=== PATIENT | female | born 1970 | race Caucasian/White ===

== ENCOUNTER → 2016-08-21 | Outpatient (CLI) | payer BC ==
--- NOTE | 2016-08-22 08:09 | MM ---
Reason for exam: screening (asymptomatic). Last mammogram was performed 1 year and 1 month ago. History: Family history of breast cancer in paternal aunt at age 52 and breast cancer in paternal grandmother at age 81. Benign excisional biopsy, 2013. Physical Findings: A clinical breast exam by your physician is recommended on an annual basis and results should be correlated with mammographic findings. MG Screening Mammo w CAD Bilateral CC and MLO view(s) were taken. Prior study comparison: August 04, 2015, bilateral MG screening mammo w CAD. September 15, 2013, bilateral digital screening mammo w/CAD. There are scattered fibroglandular densities. Finding: There are typically benign round calcifications in both breasts. Previous mammotome biopsy in the right breast. There is no discrete abnormality. ASSESSMENT: Benign, BI-RAD 2 RECOMMENDATION: Routine screening mammogram of both breasts in 1 year.
== END | disposition home or self-care (01) ==
LOC: RADMAMWWP 07:15
PROVIDERS: ATTEND Family Medicine
DX: Z12.31 Encounter for screening mammogram for malignant neoplasm of breast (principal); Z80.3 Family history of malignant neoplasm of breast

== ENCOUNTER 2017-04-18 08:45 | Day surgery (SDC) | payer BC ==
[2017-04-14 12:47] VITALS: BMI 30.7
[~2017-04-18 08:45] MED LIST: LACTATED RINGERS 1,000 ML IV ONE; LIDOCAINE 1% 20 ML VIAL (10MG/ML) FOR IV START INTRADERMA PRN
[2017-04-18 09:10] VITALS: TEMP 98.7
[2017-04-18] MEDS ORDERED: LIDOCAINE 1% INJ 10MG/ML (20 ML MDV) ONE (10:08)
[2017-04-18] MEDS ORDERED: PROPOFOL 10 MG/ML 20 ML VIAL IV ONE (10:08)
--- NOTE | 2017-04-18 10:15 | P.GSHP ---
History of Present Illness H&P Date: 04/18/17 Chief Complaint: GI bleed This is a 46-year-old female referred from Dr. Jodi Mcmillan. Patient rents today for colonoscopy. She's had issues with rectal bleeding. She states she had a previous colonoscopy 9 years ago. She is found have colon polyps at that time. Past Medical History Past Medical History: Neurologic Disorder Additional Past Medical History / Comment(s): MIGRAINES History of Any Multi-Drug Resistant Organisms: None Reported Past Surgical History: Breast Surgery, Uterine Ablation Additional Past Surgical History / Comment(s): RT BREAST BX. COLONOSCOPY. D & C Past Anesthesia/Blood Transfusion Reactions: No Reported Reaction Smoking Status: Current every day smoker - Past Family History Mother Family Medical History: No Reported History Medications and Allergies Home Medications Medication Instructions Recorded Confirmed Type No Known Home Medications [No 04/14/17 04/14/17 History Known Home Medications] Allergies Allergy/AdvReac Type Severity Reaction Status Date / Time No Known Allergies Allergy Verified 04/14/17 12:42 Surgical - Exam Vital Signs Temp Pulse Resp BP Pulse Ox 98.7 F 70 16 104/67 96 04/18/17 09:06 04/18/17 09:06 04/18/17 09:06 04/18/17 09:06 04/18/17 09:06 - General well developed, no distress - Eyes PERRL - ENT normal pinna - Neck no masses - Respiratory normal expansion - Cardiovascular Rhythm: regular - Abdomen Abdomen: soft, non tender Assessment and Plan Assessment: GI Bleed. We'll perform colonoscopy
--- NOTE | 2017-04-18 10:29 | P.OP ---
Date of Procedure: 04/18/17 Preoperative Diagnosis: GI bleed Postoperative Diagnosis: Internal hemorrhoids Colon polyps Procedure(s) Performed: Colonoscopy Anesthesia: MAC Surgeon: Herrera Hardin Pathology: other (Colon polyp) Condition: stable Description of Procedure: Patient's placed on the endoscopy table in the lateral position. She received IV sedation. Digital rectal exam was performed which revealed internal hemorrhoids. The flexible colonoscope was then placed patient anus passed throughout the entire colon. The ileocecal valve was visualized. The cecum, ascending and transverse colon appeared normal. The scope back in the descending and sigmoid colon and there is no evidence of any diverticulosis. In the distal sigmoid colon there was a small hyperplastic polyp was removed the forcep. Scope summer back the rectum and another small polyp was removed the forcep. Scope was withdrawn for patient.
[2017-04-18 10:51] VITALS: BP 125/78; PULSE 57; RESP 16
== END 2017-04-18 11:44 | disposition home or self-care (01) ==
LOC: ORWHC2ENDO 08:45
PROVIDERS: ATTEND Surgery
DX: K63.5 Polyp of colon (principal); K62.1 Rectal polyp; K64.8 Other hemorrhoids; F17.200 Nicotine dependence, unspecified, uncomplicated; Z86.010 Personal history of colon polyps
CPT/HCPCS: 45380; 81025; J2001; J2704; 88305

== ENCOUNTER 2017-09-21 11:47 | Observation (INO) | payer BC ==
[2017-09-21] MEDS ORDERED: MORPHINE SULFATE 4MG/4ML SYRG IVP STA ×2 (12:47→16:24)
[2017-09-21] MEDS ORDERED: SODIUM CHLORIDE 0.9% 1,000 ML IV STA (12:47)
--- NOTE | 2017-09-21 12:55 | ED ---
General Adult HPI - General Chief complaint: Abdominal Pain Stated complaint: Pelvic pain Time Seen by Provider: 09/21/17 12:40 Source: patient, RN notes reviewed Mode of arrival: ambulatory Limitations: no limitations - History of Present Illness Initial comments: Patient 46-year-old female presented to the emergency room today with a chief complaint of left lower quadrant. Patient states that she has a history of ovarian cyst. States that she's post follow-up for further imaging with a CAT scan later in the week. States that pain has become worse last 2-3 days more constant. Describes as a twisting type pain left lower quadrant. Denies any bleeding or discharge. Patient states it's been using IV Profen Tylenol at home little relief the symptoms. Patient does admit to feeling nauseous. Patient denies any recent fever, chills, shortness of breath, chest pain, back pain, numbness or tingling, dysuria or hematuria, constipation or diarrhea, headaches or visual changes, or any other complaints. - Related Data Home Medications Medication Instructions Recorded Confirmed No Known Home Medications [No 04/14/17 04/14/17 Known Home Medications] Allergies Allergy/AdvReac Type Severity Reaction Status Date / Time No Known Allergies Allergy Verified 09/21/17 12:05 Review of Systems ROS Statement: Those systems with pertinent positive or pertinent negative responses have been documented in the HPI. ROS Other: All systems not noted in ROS Statement are negative. Past Medical History Past Medical History: Neurologic Disorder Additional Past Medical History / Comment(s): MIGRAINES History of Any Multi-Drug Resistant Organisms: None Reported Past Surgical History: Breast Surgery, Uterine Ablation Additional Past Surgical History / Comment(s): RT BREAST BX. COLONOSCOPY. D & C Past Anesthesia/Blood Transfusion Reactions: No Reported Reaction Past Psychological History: Depression Smoking Status: Current every day smoker Past Alcohol Use History: Occasional Past Drug Use History: None Reported - Past Family History Mother Family Medical History: No Reported History General Exam - General Exam Comments Initial Comments: General: The patient is awake and alert, in no distress, and does not appear acutely ill. Eye: Pupils are equal, round and reactive to light, extra-ocular movements are intact. No nystagmus. There is normal conjunctiva bilaterally. No signs of icterus. Ears, nose, mouth and throat: There are moist mucous membranes and no oral lesions. Neck: The neck is supple, there is no tenderness or JVD. Cardiovascular: There is a regular rate and rhythm. No murmur, rub or gallop is appreciated. Respiratory: Lungs are clear to auscultation, respirations are non-labored, breath sounds are equal. No wheezes, stridor, rales, or rhonchi. Gastrointestinal: Patient does have tenderness left lower quadrant. No rebound tenderness. No guarding. No CVA tenderness. Musculoskeletal: Normal ROM, no tenderness. Strength 5/5. Sensation intact. Pulses equal bilaterally 2+. Neurological: A&O x 3. CN II-XII intact, There are no obvious motor or sensory deficits. Coordination appears grossly intact. Speech is normal. Skin: Skin is warm and dry and no rashes or lesions are noted. Psychiatric: Cooperative, appropriate mood & affect, normal judgment. Limitations: no limitations Course Vital Signs 09/21/17 12:01 Temperature 99.4 F Pulse Rate 80 Respiratory 18 Rate Blood Pressure 134/79 O2 Sat by Pulse 100 Oximetry Medical Decision Making - Medical Decision Making Patient lives been reviewed does show 24,000 white count. Patient does admit that she has a history of an elevated white count of the past that she did go to a specialist for. States that they never found a reason. Patient does admit that she's had increased pain left side of the abdomen over the last few days. Does have an ovarian cyst on the left side of torsion. Does show endometrial mass. CT the abdomen and pelvis performed due to elevated white count and abdominal pain and shows endometrial mass and redemonstrates ovarian cyst. Results were discussed with the patient. Patient be admitted with a MEDICAL INSURANCE COLLECTOR consult. States she's seeing Dr. Gonzalez in the past. - Lab Data Result diagrams: 09/21/17 13:10 09/21/17 13:10 Lab Results 09/21/17 09/21/17 09/21/17 Range/Units 13:10 13:10 13:10 WBC 24.3 H (3.8-10.6) k/uL RBC 5.31 (3.80-5.40) m/uL Hgb 15.8 (11.4-16.0) gm/dL Hct 47.7 H (34.0-46.0) % MCV 90.0 (80.0-100.0) fL MCH 29.7 (25.0-35.0) pg MCHC 33.0 (31.0-37.0) g/dL RDW 12.8 (11.5-15.5) % Plt Count 379 (150-450) k/uL Neutrophils % 85 % Lymphocytes % 8 % Monocytes % 5 % Eosinophils % 3 % Basophils % 0 % Neutrophils # 20.6 H (1.3-7.7) k/uL Lymphocytes # 1.8 (1.0-4.8) k/uL Monocytes # 1.1 H (0-1.0) k/uL Eosinophils # 0.6 (0-0.7) k/uL Basophils # 0.1 (0-0.2) k/uL Sodium 140 (137-145) mmol/L Potassium 4.4 (3.5-5.1) mmol/L Chloride 102 (98-107) mmol/L Carbon Dioxide 27 (22-30) mmol/L Anion Gap 11 mmol/L BUN 5 L (7-17) mg/dL Creatinine 0.59 (0.52-1.04) mg/dL Est GFR (CKD-EPI)AfAm >90 (>60 ml/min/1.73 sqM) Est GFR (CKD-EPI)NonAf >90 (>60 ml/min/1.73 sqM) Glucose 103 H (74-99) mg/dL Calcium 9.8 (8.4-10.2) mg/dL Total Bilirubin 0.9 (0.2-1.3) mg/dL AST 16 (14-36) U/L ALT 19 (9-52) U/L Alkaline Phosphatase 101 (38-126) U/L Total Protein 8.0 (6.3-8.2) g/dL Albumin 4.5 (3.5-5.0) g/dL Lipase 48 (23-300) U/L Urine Color Urine Appearance (Clear) Urine pH (5.0-8.0) Ur Specific [place] (1.001-1.035) Urine Protein (Negative) Urine Glucose (UA) (Negative) Urine Ketones (Negative) Urine Blood (Negative) Urine Nitrite (Negative) Urine Bilirubin (Negative) Urine Urobilinogen (<2.0) mg/dL Ur Leukocyte Esterase (Negative) Urine RBC (0-5) /hpf Urine WBC (0-5) /hpf Ur Squamous Epith Cells (0-4) /hpf Urine Bacteria (None) /hpf Urine Mucus (None) /hpf Urine HCG, Qual Not Detected (Not Detectd) 09/21/17 Range/Units 13:10 WBC (3.8-10.6) k/uL RBC (3.80-5.40) m/uL Hgb (11.4-16.0) gm/dL Hct (34.0-46.0) % MCV (80.0-100.0) fL MCH (25.0-35.0) pg MCHC (31.0-37.0) g/dL RDW (11.5-15.5) % Plt Count (150-450) k/uL Neutrophils % % Lymphocytes % % Monocytes % % Eosinophils % % Basophils % % Neutrophils # (1.3-7.7) k/uL Lymphocytes # (1.0-4.8) k/uL Monocytes # (0-1.0) k/uL Eosinophils # (0-0.7) k/uL Basophils # (0-0.2) k/uL Sodium (137-145) mmol/L Potassium (3.5-5.1) mmol/L Chloride (98-107) mmol/L Carbon Dioxide (22-30) mmol/L Anion Gap mmol/L BUN (7-17) mg/dL Creatinine (0.52-1.04) mg/dL Est GFR (CKD-EPI)AfAm (>60 ml/min/1.73 sqM) Est GFR (CKD-EPI)NonAf (>60 ml/min/1.73 sqM) Glucose (74-99) mg/dL Calcium (8.4-10.2) mg/dL Total Bilirubin (0.2-1.3) mg/dL AST (14-36) U/L ALT (9-52) U/L Alkaline Phosphatase (38-126) U/L Total Protein (6.3-8.2) g/dL Albumin (3.5-5.0) g/dL Lipase (23-300) U/L Urine Color Light Yellow Urine Appearance Clear (Clear) Urine pH 7.0 (5.0-8.0) Ur Specific [place] 1.007 (1.001-1.035) Urine Protein Negative (Negative) Urine Glucose (UA) Negative (Negative) Urine Ketones Negative (Negative) Urine Blood Negative (Negative) Urine Nitrite Negative (Negative) Urine Bilirubin Negative (Negative) Urine Urobilinogen <2.0 (<2.0) mg/dL Ur Leukocyte Esterase Trace H (Negative) Urine RBC 2 (0-5) /hpf Urine WBC 1 (0-5) /hpf Ur Squamous Epith Cells 3 (0-4) /hpf Urine Bacteria Rare H (None) /hpf Urine Mucus Rare H (None) /hpf Urine HCG, Qual (Not Detectd) Disposition Clinical Impression: Ovarian cyst, Endometrial mass Disposition: ADMITTED IP TO THIS [facility] Condition: Good Is patient prescribed a controlled substance at d/c from ED?: No Referrals: None,Stated [REFERRING] - 1-2 days Time of Disposition: 15:38
[2017-09-21] MEDS: ONDANSETRON 4 MG/2 ML VIAL IVP STA (13:15)
[2017-09-21 13:22] LABS: Appearance,Urine Clear (Clear); Bacteria,Urine Rare /hpf; Basophils # (A) 0.1 k/uL (0-0.2); Basophils % (A) 0 %; Bilirubin,Urine Negative (Negative); Blood,Urine Negative (Negative); Color,Urine Light Yellow; Eosinophils # (A) 0.6 k/uL (0-0.7); Eosinophils % (A) 3 %; Glucose,Urine (UA) Negative (Negative); HCT 47.7 % (34.0-46.0); HGB 15.8 gm/dL (11.4-16.0); Ketones,Urine Negative (Negative); Leukocyte Esterase,Urine Trace (Negative); Lymphocytes # (A) 1.8 k/uL (1.0-4.8); Lymphocytes % (A) 8 %; MCH 29.7 pg (25.0-35.0); Mean Platelet Volume 7.4; Monocytes # (A) 1.1 k/uL (0-1.0); Monocytes % (A) 5 %; Mucus,Urine Rare /hpf; Neutrophils # (A) 20.6 k/uL (1.3-7.7); Neutrophils % (A) 85 %; Nitrite,Urine Negative (Negative); Platelet Count 379 k/uL (150-450); Protein,Urine Negative (Negative); RBC 5.31 m/uL (3.80-5.40); RBC,Urine 2 /hpf (0-5); RDW 12.8 % (11.5-15.5); Specific Gravity,Urine 1.007 (1.001-1.035); Squamous Epithelial Cell,Urine 3 /hpf (0-4); Urobilinogen,Urine <2.0 mg/dL (<2.0); WBC 24.3 k/uL (3.8-10.6); WBC,Urine 1 /hpf (0-5)
[2017-09-21 13:33] LABS: ALT 19 U/L (9-52); AST 16 U/L (14-36); Albumin 4.5 g/dL (3.5-5.0); Alkaline Phosphatase 101 U/L (38-126); Anion Gap 11 mmol/L; Blood Urea Nitrogen 5 mg/dL (7-17); Calcium 9.8 mg/dL (8.4-10.2); Carbon Dioxide 27 mmol/L (22-30); Chloride 102 mmol/L (98-107); Glucose 103 mg/dL (74-99); Lipase 48 U/L (23-300); Potassium 4.4 mmol/L (3.5-5.1); Sodium 140 mmol/L (137-145); Total Bilirubin 0.9 mg/dL (0.2-1.3)
--- NOTE | 2017-09-21 13:57 | US ---
EXAMINATION TYPE: US transvaginal DATE OF EXAM: 09/21/2017 COMPARISON: NONE CLINICAL HISTORY: pain. Pt states pelvic pain, recent diagnosis of left ovarian cyst at outside facil ity TECHNIQUE: Transvaginal (TV) and Transabdominal (TA) . Ovaries only visualized transabdominally due to large uterine mass Date of LMP: Pt had ablation 4 years ago, recent vaginal bleeding. However pt states it is very irre gular EXAM MEASUREMENTS: Uterus: 11.4 x 7.0 x 9.7 cm Right Ovary: 2.5 x 1.6 x 1.8 cm Left Ovary: 3.3 x 1.8 x 2.5 cm 1. Uterus: Anteverted Heterogeneous with large, solid mass filling entire uterine cavity= 8.6 x 6. 9 x 8.5 cm, peripheral vascularity 2. Endometrium: Unable to visualize due to large mass 3. Right Ovary: wnl 4. Left Ovary: Cyst= 1.9 x 1.4 x 1.7 cm Spectral, color and waveform doppler imaging shows good arterial and venous flow within the ovaries ; there is no evidence for ovarian torsion. 5. Bilateral Adnexa: wnl 6. Posterior cul-de-sac: small amount of free fluid IMPRESSION: 1. 8.6 CM ENDOMETRIAL MASS. ENDOMETRIAL CARCINOMA WOULD NEED TO BE EXCLUDED. 2. 1.9 CM, LEFT OVARIAN CYST, LIKELY PHYSIOLOGIC.
[2017-09-21] MEDS ORDERED: RX INFO: IV CONTRAST WAS GIVEN 1 EACH MISC MISCELLANE PRN (14:23)
--- NOTE | 2017-09-21 15:18 | CT ---
EXAMINATION TYPE: CT abdomen pelvis w con DATE OF EXAM: 09/21/2017 COMPARISON: NONE HISTORY: LLQ pain. History of uterine ablation. CT DLP: 1358 mGycm CONTRAST: CT scan of the abdomen and pelvis is performed without Oral Contrast and with IV Contrast, patient in jected with 100 mL of Isovue 300. FINDINGS: LUNG BASES-: No visible nodule. No infiltrate. LIVER/GB: No calcified gallstones. No space occupying hepatic lesion. Biliary tree is of normal ca liber. Subcentimeter hepatic cyst right hepatic lobe. PANCREAS: No inflammation. No distinct mass. SPLEEN: No splenic enlargement. No lesion seen. ADRENALS: No nodule. No thickening. KIDNEYS/BLADDER: No hydronephrosis. No nephrolithiasis. No distinct renal mass. Urinary bladder g rossly unremarkable. BOWEL: Normal appendix. Normal bowel caliber. No inflammation. GENITAL ORGANS: 8.4 x 7.6 cm endometrial mass fills the endometrium. Endometrial carcinoma is not ex cluded. Left ovarian cystic lesion measuring 1.6 cm. LYMPH NODES: No greater than 1cm abdominal or pelvic lymph nodes are appreciated. AORTA: No significant abnormality. OSSEOUS STRUCTURES: No significant abnormality is seen. OTHER: No significant additional abnormality is seen. IMPRESSION: 1. Endometrial mass. Correlate for endometrial carcinoma. 2. Small left ovarian cyst.
[2017-09-21] MEDS ORDERED: SODIUM CHLORIDE 0.9% 1,000 ML IV ONE (15:41)
[2017-09-21] MEDS ORDERED: ONDANSETRON 4 MG/2 ML VIAL IVP PRN (15:41)
[2017-09-21] MEDS ORDERED: ACETAMINOPHEN TAB 325 MG TAB PO PRN (15:41)
[2017-09-21] MEDS ORDERED: MORPHINE ORAL SOLN 10 MG/5 ML CUP PO PRN (15:41)
[2017-09-21] MEDS ORDERED: NALOXONE 0.4 MG/ML 1 ML VIAL IV PRN (15:41)
[2017-09-21 17:27] VITALS: BMI 30.4
[2017-09-21] MEDS: HYDROcodone/APAP 5-325MG 1 EACH TAB PO PRN (19:24)
--- NOTE | 2017-09-21 20:46 | P.OBCN ---
History of Present Illness Consult date: 09/21/17 Reason for consult: pelvic pain Chief complaint: Pelvic pain History of present illness: 46-year-old female presents to the hospital complaining of pelvic pain increasing over the month. It really increased over the last 2 days since she presented to the hospital and was admitted. She is a history of NovaSure ablation about [address] Gonzalez and had no periods until the fall. In the fall she started having some spotty irregular periods there were very light. Her last period was in July. She says on September 06 she had an ultrasound admission medical and results just showed an ovarian cyst. Ultrasound here shows a small ovarian cyst but also an 8.6 cm endometrial mass. I suspect that this is likely hematometria from blood stuck inside of the endometrium as the endometrium is bleeding and the cervix is likely scarred from the novasure. It is very unlikely to be endometrial carcinoma especially since this mass was not there on September 06 at her previous ultrasound. Review of Systems All systems: negative Constitutional: Denies chills, Denies fever Eyes: denies blurred vision, denies pain Ears, nose, mouth and throat: Denies headache, Denies sore throat Cardiovascular: Denies chest pain, Denies shortness of breath Respiratory: Denies cough Gastrointestinal: Denies abdominal pain, Denies diarrhea, Denies nausea, Denies vomiting Genitourinary: Denies dysuria, Denies hematuria Musculoskeletal: Denies myalgias Integumentary: Denies pruritus, Denies rash Neurological: Denies numbness, Denies weakness Psychiatric: Denies anxiety, Denies depression Endocrine: Denies fatigue, Denies weight change Past Medical History Past Medical History: Neurologic Disorder Additional Past Medical History / Comment(s): MIGRAINES History of Any Multi-Drug Resistant Organisms: None Reported Past Surgical History: Breast Surgery, Uterine Ablation Additional Past Surgical History / Comment(s): RT BREAST BX. COLONOSCOPY. D & C Past Anesthesia/Blood Transfusion Reactions: No Reported Reaction Past Psychological History: Depression Smoking Status: Current every day smoker Past Alcohol Use History: Occasional Additional Past Alcohol Use History / Comment(s): SMOKING 3/4 PPD SINCE AGE 25 Past Drug Use History: None Reported - Past Family History Mother Family Medical History: No Reported History Medications and Allergies Home Medications Medication Instructions Recorded Confirmed Type Acetaminophen Tab [Tylenol Tab] 650 mg PO Q6H PRN 09/21/17 09/21/17 History Cefdinir [Omnicef] 300 mg PO BID 09/21/17 09/21/17 History Ibuprofen [Motrin] 800 mg PO TID PRN 09/21/17 09/21/17 History Allergies Allergy/AdvReac Type Severity Reaction Status Date / Time varenicline [From Chantix] AdvReac Hallucinati Verified 09/21/17 16:25 ons Exam Osteopathic Statement: *. No significant issues noted on an osteopathic structural exam other than those noted in the History and Physical/Consult. - Vital Signs Vital signs: Vital Signs Temp Pulse Pulse Resp BP BP Pulse Ox 09/21/17 20:10 99.3 F 71 20 117/71 95 09/21/17 16:56 98.3 F 78 20 137/85 96 09/21/17 16:20 99.2 F 80 18 150/72 98 09/21/17 12:01 99.4 F 80 18 134/79 100 Intake and Output 09/21/17 09/21/17 09/21/17 06:59 14:59 22:59 Intake Total 240 Balance 240 Intake: Oral 240 Other: Weight 71.214 kg 70.7 kg Heart: Regular rate and rhythm Lungs: Clear to auscultation bilaterally Abdomen: Soft, nontender Extremities: Negative Homans sign Results Result Diagrams: 09/21/17 13:10 09/21/17 13:10 Abnormal Lab Results - Last 24 Hours (Table) 09/21/17 09/21/17 09/21/17 Range/Units 13:10 13:10 13:10 WBC 24.3 H (3.8-10.6) k/uL Hct 47.7 H (34.0-46.0) % Neutrophils # 20.6 H (1.3-7.7) k/uL Monocytes # 1.1 H (0-1.0) k/uL BUN 5 L (7-17) mg/dL Glucose 103 H (74-99) mg/dL Ur Leukocyte Esterase Trace H (Negative) Urine Bacteria Rare H (None) /hpf Urine Mucus Rare H (None) /hpf Microbiology - Last 24 Hours (Table) 09/21/17 13:10 Urine Culture - Preliminary Urine,Clean Catch Assessment and Plan (1) Pelvic pain Current Visit: Yes Status: Acute Code(s): R10.2 - PELVIC AND PERINEAL PAIN SNOMED Code(s): 35182130 (2) Endometrial mass Narrative/Plan: Suspect hematometria Current Visit: Yes Status: Acute Code(s): N94.89 - OTH COND ASSOC W FEMALE GENITAL ORGANS AND MENSTRUAL CYCLE SNOMED Code(s): 832664682 Plan: 1. Nothing by mouth after midnight 2. I would like to take this patient for a D&C tomorrow as I believe this is the only thing that is going to relieve her pain and will also get a sample of the inner lining of the uterus to ensure this is not endometrial carcinoma. 3. All risks, benefits, alternatives of a dilation and curettage were discussed with the patient and her significant other then expressed complete understanding.
[2017-09-22] MEDS: HYDROcodone/APAP 5-325MG 1 EACH TAB PO PRN (07:00)
[2017-09-22 07:10] LABS: Basophils # (A) 0.1 k/uL (0-0.2); Basophils % (A) 0 %; Eosinophils # (A) 0.4 k/uL (0-0.7); Eosinophils % (A) 2 %; HCT 41.2 % (34.0-46.0); HGB 13.7 gm/dL (11.4-16.0); Lymphocytes % (A) 9 %; MCH 30.3 pg (25.0-35.0); MCHC 33.2 g/dL (31.0-37.0); MCV 91.4 fL (80.0-100.0); Mean Platelet Volume 7.1; Monocytes # (A) 1.1 k/uL (0-1.0); Monocytes % (A) 5 %; Neutrophils # (A) 16.9 k/uL (1.3-7.7); Neutrophils % (A) 81 %; Platelet Count 355 k/uL (150-450); RBC 4.51 m/uL (3.80-5.40); RDW 12.7 % (11.5-15.5); WBC 20.7 k/uL (3.8-10.6)
[2017-09-22 07:24] LABS: ALT 15 U/L (9-52); AST 12 U/L (14-36); Albumin 3.3 g/dL (3.5-5.0); Alkaline Phosphatase 79 U/L (38-126); Anion Gap 11 mmol/L; Blood Urea Nitrogen 4 mg/dL (7-17); Calcium 8.8 mg/dL (8.4-10.2); Carbon Dioxide 23 mmol/L (22-30); Chloride 107 mmol/L (98-107); Glucose 97 mg/dL (74-99); Potassium 4.3 mmol/L (3.5-5.1); Sodium 141 mmol/L (137-145); Total Bilirubin 0.7 mg/dL (0.2-1.3)
[2017-09-22] MEDS ORDERED: IV FLUID CONTINUATION 500 ML IV ONE (08:07)
[2017-09-22] MEDS ORDERED: DEXAMETHASONE SOD PHOS (MDV) 100 MG/10 ML VIAL IV ONE (08:13)
[2017-09-22] MEDS: ONDANSETRON 4 MG/2 ML VIAL IVP STA (08:13)
[2017-09-22] MEDS ORDERED: LIDOCAINE 1% INJ 10MG/ML (20 ML MDV) ONE (09:10)
[2017-09-22] MEDS ORDERED: KETOROLAC 30 MG/ML 1 ML VIAL ONE (09:10)
[2017-09-22] MEDS ORDERED: MIDAZOLAM 2 MG/2 ML VIAL ONE (09:10)
[2017-09-22] MEDS ORDERED: SUCCINYLCHOLINE CHLORIDE 100 MG/5 ML SYR IV ONE (09:10)
[2017-09-22] MEDS ORDERED: PROPOFOL 10 MG/ML 20 ML VIAL IV ONE (09:10)
[2017-09-22] MEDS ORDERED: LACTATED RINGERS 1,000 ML IV ONE (09:45)
--- NOTE | 2017-09-22 09:49 | P.OP ---
Date of Procedure: 09/22/17 Preoperative Diagnosis: 1. Endometrial mass, suspected menometrorrhagia Postoperative Diagnosis: 1. Same Procedure(s) Performed: D&C Anesthesia: CHELLYA Surgeon: Elizabeth Johnson Estimated Blood Loss (ml): 50 IV fluids (ml): 400 Urine output (ml): 40 Pathology: other (Endometrial curettings, blood clot) Condition: stable Disposition: PACU Operative Findings: Stenotic cervix, red blood came out of uterus after cervix was dilated, minimal endometrial curettings Description of Procedure: Patient is taken the operating room where general anesthesia was obtained without difficulty. She is prepped and draped in a sterile fashion dorsal lithotomy position, legs placed in the candycane stirrups. Bladder was drained of all urine. Weighted speculum place in vagina and the anterior lip the cervix was grasped with single-tooth tenaculum. The cervix was dilated with Hegar dilators to the #6. This and as the cervix sounded to be dilated red blood started to come out of the uterus. Sharp curet was then gently used to obtain endometrial curettings. A red blood started to come out of the uterus with this curetting, minimal endometrial curetting was noted. There was felt to be some firmness and possibly solid area within the endometrial cavity. Ultrasound was also attempted to be performed by good visualization was not achieved. Patient was no longer bleeding and all instruments were removed from the vagina. Patient tolerated procedure well, sponge and instrument counts correct 2. She was taken to recovery room in stable condition.
[2017-09-22 11:19] VITALS: TEMP 97.9
[2017-09-22 12:38] VITALS: RESP 18
--- NOTE | 2017-09-22 12:44 | P.HPIM ---
History of Present Illness H&P Date: 09/22/17 This is a 46-year-old female with no significant past medical history who presented to the emergency room with abdominal pain. Patient said that her symptoms started originally a month ago is being getting progressively worse. Over the last couple of days she noted that her pain was intolerable. She was evaluated in the emergency room and underwent a computed tomography scan of the abdomen showing large endometrial mass. A previous ultrasound showed left ovarian cyst. Patient denies any bleeding or spotting. She was having difficulty with her menstrual period and had a prior ablation approximately 4 years ago. She was seen and evaluated by gynecology and underwent a D&C this morning. Patient said that her pain is a lot better right now. No reported bleeding. Estimated blood loss estimated. Hemoglobin is stable. Review of Systems Review of system: 14 points review of systems were obtained and were negative except to what were mentioned in the HPI. Past Medical History Past Medical History: Neurologic Disorder Additional Past Medical History / Comment(s): MIGRAINES History of Any Multi-Drug Resistant Organisms: None Reported Past Surgical History: Breast Surgery, Uterine Ablation Additional Past Surgical History / Comment(s): RT BREAST BX. COLONOSCOPY. D & C Past Anesthesia/Blood Transfusion Reactions: No Reported Reaction Past Psychological History: Depression Smoking Status: Current every day smoker Past Alcohol Use History: Occasional Additional Past Alcohol Use History / Comment(s): SMOKING 3/4 PPD SINCE AGE 25 Past Drug Use History: None Reported - Past Family History Mother Family Medical History: No Reported History Medications and Allergies Home Medications Medication Instructions Recorded Confirmed Type Acetaminophen Tab [Tylenol Tab] 650 mg PO Q6H PRN 09/21/17 09/21/17 History Cefdinir [Omnicef] 300 mg PO BID 09/21/17 09/21/17 History Ibuprofen [Motrin] 800 mg PO TID PRN 09/21/17 09/21/17 History Allergies Allergy/AdvReac Type Severity Reaction Status Date / Time varenicline [From Chantix] AdvReac Hallucinati Verified 09/22/17 08:15 ons Physical Exam Vitals: Vital Signs Temp Pulse Pulse Pulse Pulse Resp BP 09/22/17 11:40 66 18 09/22/17 11:25 75 17 09/22/17 11:10 97.9 F 76 17 09/22/17 10:50 64 16 09/22/17 10:34 61 16 09/22/17 10:19 60 16 09/22/17 10:04 97.4 F L 65 22 09/22/17 08:08 97.6 F 65 16 09/22/17 07:44 98.1 F 72 16 09/21/17 23:45 97.3 F L 67 16 09/21/17 20:10 99.3 F 71 20 09/21/17 16:56 98.3 F 78 20 09/21/17 16:20 99.2 F 80 18 150/72 BP BP Pulse Ox 09/22/17 11:40 144/83 95 09/22/17 11:25 152/89 95 09/22/17 11:10 142/95 98 09/22/17 10:50 142/82 95 09/22/17 10:34 153/83 95 09/22/17 10:19 145/81 100 09/22/17 10:04 149/81 100 09/22/17 08:08 123/71 95 09/22/17 07:44 120/78 95 09/21/17 23:45 139/86 98 09/21/17 20:10 117/71 95 09/21/17 16:56 137/85 96 09/21/17 16:20 98 Intake and Output 09/21/17 09/22/17 09/22/17 22:59 06:59 14:59 Intake Total 240 420 Output Total 90 Balance 240 330 Intake: IV 420 Oral 240 Output: Urine 40 Estimated Blood Loss 50 Other: # Voids 1 1 Weight 70.7 kg General: The patient is awake and alert, in no distress Eye: there is normal conjunctiva bilaterally. Neck: The neck is supple, there is no JVD. Cardiovascular: Normal S1-S2, no S3-S4, no murmurs. Respiratory: Lungs clear to auscultation bilaterally Gastrointestinal: Abdomen is soft, nontender Musculoskeletal: There is no pedal edema. Neurological:. Speech is normal. Skin: Skin is warm and dry Results CBC & Chem 7: 09/22/17 06:31 09/22/17 06:31 Labs: Abnormal Lab Results - Last 24 Hours (Table) 09/21/17 09/21/17 09/21/17 Range/Units 13:10 13:10 13:10 WBC 24.3 H (3.8-10.6) k/uL Hct 47.7 H (34.0-46.0) % Neutrophils # 20.6 H (1.3-7.7) k/uL Monocytes # 1.1 H (0-1.0) k/uL BUN 5 L (7-17) mg/dL Glucose 103 H (74-99) mg/dL AST (14-36) U/L Total Protein (6.3-8.2) g/dL Albumin (3.5-5.0) g/dL Ur Leukocyte Esterase Trace H (Negative) Urine Bacteria Rare H (None) /hpf Urine Mucus Rare H (None) /hpf 09/22/17 09/22/17 Range/Units 06:31 06:31 WBC 20.7 H (3.8-10.6) k/uL Hct (34.0-46.0) % Neutrophils # 16.9 H (1.3-7.7) k/uL Monocytes # 1.1 H (0-1.0) k/uL BUN 4 L (7-17) mg/dL Glucose (74-99) mg/dL AST 12 L (14-36) U/L Total Protein 6.0 L (6.3-8.2) g/dL Albumin 3.3 L (3.5-5.0) g/dL Ur Leukocyte Esterase (Negative) Urine Bacteria (None) /hpf Urine Mucus (None) /hpf Microbiology - Last 24 Hours (Table) 09/21/17 13:10 Urine Culture - Final Urine,Clean Catch Thrombosis Risk Factor Assmnt - Choose All That Apply Each Factor Represents 1 point: Age 41-60 years, Obesity (BMI >25) Other Risk Factors: Yes Other congenital or acquired thrombophilia - If yes, enter type in comment: Yes Thrombosis Risk Factor Assessment Total Risk Factor Score: 2 Thrombosis Risk Factor Assessment Level: Low Risk Assessment and Plan Assessment: 1. Severe abdominal pain with large endometrial mass status post D&C. Highly suspected for menometrorrhagia. Awaiting pathology report. 2. Leukocytosis: Most likely reactive. No obvious source of infection. Urine I'll assist and urine culture negative. No documented fever. We will repeat CBC in the morning. Today, I reviewed her medication list and lab work results. Encouraged ambulation. Repeat CBC in the morning. It's be discharged home tomorrow
[2017-09-22 14:06] VITALS: BP 122/84; PULSE 69
== END 2017-09-22 17:04 | disposition home or self-care (01) ==
LOC: EC 11:47 → 6PED 15:41
PROVIDERS: ADMIT Internal Medicine; ATTEND Internal Medicine
DX: N85.8 Other specified noninflammatory disorders of uterus (principal); N83.202 Unspecified ovarian cyst, left side; D72.829 Elevated white blood cell count, unspecified; F32.9 Major depressive disorder, single episode, unspecified; F17.210 Nicotine dependence, cigarettes, uncomplicated; Z88.8 Allergy status to other drugs, medicaments and biological substances; E66.9 Obesity, unspecified; Z68.30 Body mass index [BMI] 30.0-30.9, adult; R11.0 Nausea; Z79.2 Long term (current) use of antibiotics
CPT/HCPCS: 58120; 99285; 96361 ×4; 96374; 96375 ×2; 96376; 36415; 81025 ×2; 88305; 80053 ×2; 83690; 85025 ×2; 81001; 87086; 93975; 76856; 76830; 74177; G0378 ×2; J2250; J2405 ×2; J2001; J1885; J1100; J0330; J2704; Q9967; J2270

== ENCOUNTER → 2017-10-02 | Outpatient (CLI) | payer BC ==
--- NOTE | 2017-10-02 14:56 | US ---
EXAMINATION TYPE: US pelvic complete DATE OF EXAM: 10/02/2017 COMPARISON: 08/2017 CLINICAL HISTORY: R10.2 pelvic pain, N94.89Other specified condition. TECHNIQUE: Transabdominal (TA). Transabdominal sonographic images of the pelvis were acquired. Date of LMP: 4 years ago , ablation, bleeding 08/17 EXAM MEASUREMENTS: Uterus: 11.4 x 8.0 x 7.7 cm Endometrial Stripe: 6.3 cm Right Ovary: 2.1 x 1.7 x 1.6 cm Left Ovary: 2.1 x 2.5 x 1.4 cm 1. Uterus: Anteverted large heterogenous mass mid uterus 6.3 x 5.9 x 7.8 2. Endometrium: large heterogenous mass mid uterus 6.3 x 5.9 x 7.8 3. Right Ovary: 0.9 x 0.9 x 0.6 cm follicle 4. Left Ovary: 1.1 x 1.0 x 1.3 cm follicle. 5. Bilateral Adnexa: wnl 6. Posterior cul-de-sac: wnl IMPRESSION: Centrally within the uterus there is a large heterogenous mass as seen on the recent exam ination of 09/21/2017. Direct visualization and tissue sampling are recommended as this could represen t endometrial carcinoma, submucosal leiomyoma or leiomyosarcoma.
== END | disposition home or self-care (01) ==
LOC: RADUSWWP 14:11
PROVIDERS: ATTEND Obstetrics & Gynecology
DX: N94.89 Other specified conditions associated with female genital organs and menstrual cycle (principal); R10.2 Pelvic and perineal pain
CPT/HCPCS: 76856

== ENCOUNTER 2017-10-06 07:35 | Emergency (ER) | payer BC ==
[2017-10-06 07:48] VITALS: RESP 18
[2017-10-06] MEDS ORDERED: HYDROcodone/APAP 7.5-325MG 1 EACH TAB PO ONE (08:18)
[2017-10-06 08:31] LABS: Appearance,Urine Cloudy (Clear); Bacteria,Urine Few /hpf; Bilirubin,Urine Negative (Negative); Blood,Urine Large (Negative); Color,Urine Yellow; Glucose,Urine (UA) Negative (Negative); Ketones,Urine Negative (Negative); Leukocyte Esterase,Urine Large (Negative); Mucus,Urine Occasional /hpf; Nitrite,Urine Negative (Negative); PH, Urine 6.5 (5.0-8.0); Protein,Urine 2+ (Negative); RBC,Urine 21 /hpf (0-5); Squamous Epithelial Cell,Urine 18 /hpf (0-4); Urobilinogen,Urine <2.0 mg/dL (<2.0); WBC,Urine >182 /hpf (0-5)
--- NOTE | 2017-10-06 08:42 | ED ---
Abdominal Pain HPI - General Chief Complaint: Abdominal Pain Stated Complaint: Pelvic pain Time Seen by Provider: 10/06/17 08:04 Source: patient, RN notes reviewed Mode of arrival: ambulatory Limitations: no limitations - History of Present Illness Initial Comments: 46-year-old female presents emergency Department with chief complaint of pelvic pain. Patient's been having ongoing pelvic pain was since July. She was admitted a few weeks ago for a hematometra and had a D&C. Patient's was discharged with anti-inflammatories. Patient states that they are not helping she's been alternate Tylenol Motrin. She did follow-up in office twice this week at repeat ultrasound which continues to show endometrial mass or blood collection. Patient states that she also had a urine culture does week was negative on Friday but feels that she may have UTI. Patient states that they contacted the office this weekend who advised him to emergency department today. - Related Data Home Medications Medication Instructions Recorded Confirmed Acetaminophen Tab [Tylenol Tab] 650 mg PO Q6H PRN 09/21/17 09/21/17 Cefdinir [Omnicef] 300 mg PO BID 09/21/17 09/21/17 Ibuprofen [Motrin] 800 mg PO TID PRN 09/21/17 09/21/17 Previous Rx's Medication Instructions Recorded Ciprofloxacin HCl [Cipro] 500 mg PO Q12HR #14 tablet 10/06/17 Hydrocodone/Acetaminophen [Novi 1 tab PO Q4-6H PRN #15 tab 10/06/17 5-325] Allergies Allergy/AdvReac Type Severity Reaction Status Date / Time varenicline [From Chantix] AdvReac Hallucinati Verified 10/06/17 07:48 ons Review of Systems ROS Statement: Those systems with pertinent positive or pertinent negative responses have been documented in the HPI. ROS Other: All systems not noted in ROS Statement are negative. Past Medical History Past Medical History: Neurologic Disorder Additional Past Medical History / Comment(s): MIGRAINES History of Any Multi-Drug Resistant Organisms: None Reported Past Surgical History: Breast Surgery, Uterine Ablation Additional Past Surgical History / Comment(s): RT BREAST BX. COLONOSCOPY. D & C Past Anesthesia/Blood Transfusion Reactions: No Reported Reaction Past Psychological History: Depression Smoking Status: Current every day smoker Past Alcohol Use History: Occasional Past Drug Use History: None Reported - Past Family History Mother Family Medical History: No Reported History General Exam Limitations: no limitations General appearance: alert, in no apparent distress Head exam: Present: atraumatic, normocephalic, normal inspection Respiratory exam: Present: normal lung sounds bilaterally. Absent: respiratory distress, wheezes, rales, rhonchi, stridor Cardiovascular Exam: Present: regular rate, normal rhythm, normal heart sounds. Absent: systolic murmur, diastolic murmur, rubs, gallop, clicks GI/Abdominal exam: Present: soft, tenderness (Moderate lower abdominal, suprapubic tenderness), normal bowel sounds. Absent: distended, guarding, rebound, rigid Back exam: Absent: CVA tenderness (R), CVA tenderness (L) Skin exam: Present: warm, dry, intact, normal color. Absent: rash Course Vital Signs 10/06/17 07:46 Temperature 98.5 F Pulse Rate 104 H Respiratory 18 Rate Blood Pressure 112/81 O2 Sat by Pulse 97 Oximetry Medical Decision Making - Medical Decision Making 46-year-old female presented for pelvic pain. Patient has known hematometra and is scheduled for hysterectomy on 11/13/2017. Patient states that the office advised to come to the emergency department because of the pain. Patient states that she's been taken Tylenol Motrin. Dr. Yi did discuss the case with on-call [facility] for Dr. Johnson recommended pain control for the patient follow-up in office for further treatment. - Lab Data Lab Results 10/06/17 Range/Units 08:15 Urine Color Yellow Urine Appearance Cloudy H (Clear) Urine pH 6.5 (5.0-8.0) Ur Specific Marcus 1.020 (1.001-1.035) Urine Protein 2+ H (Negative) Urine Glucose (UA) Negative (Negative) Urine Ketones Negative (Negative) Urine Blood Large H (Negative) Urine Nitrite Negative (Negative) Urine Bilirubin Negative (Negative) Urine Urobilinogen <2.0 (<2.0) mg/dL Ur Leukocyte Esterase Large H (Negative) Urine RBC 21 H (0-5) /hpf Urine WBC >182 H (0-5) /hpf Urine WBC Clumps Occasional H (None) /hpf Ur Squamous Epith Cells 18 H (0-4) /hpf Urine Bacteria Few H (None) /hpf Urine Mucus Occasional H (None) /hpf Disposition Clinical Impression: Pelvic pain, Hematometra, UTI (urinary tract infection) Disposition: HOME SELF-CARE Condition: Stable Instructions: Pelvic Pain (ED) Additional Instructions: Follow-up in office with [facility].Please return to the Emergency Department if symptoms worsen or any other concerns. Prescriptions: Ciprofloxacin HCl [Cipro] 500 mg PO Q12HR #14 tablet Hydrocodone/Acetaminophen [Novi 5-325] 1 tab PO Q4-6H PRN #15 tab PRN Reason: Pain Is patient prescribed a controlled substance at d/c from ED?: Yes If prescribed controlled substance>3 days was MAPS reviewed?: No When asked, does pt state using other controlled substances?: No Referrals: Jodi Mcmillan DO [Primary Care Provider] - 1-2 days Elizabeth Johnson DO [Doctor of Osteopathic Medicine] - 1-2 days Time of Disposition: 08:41
[2017-10-06 09:00] VITALS: BP 122/78; PULSE 78; TEMP 98
== END 2017-10-06 09:00 | disposition home or self-care (01) ==
LOC: EC 07:35
DX: N85.7 Hematometra (principal); N39.0 Urinary tract infection, site not specified; F17.200 Nicotine dependence, unspecified, uncomplicated; Z88.8 Allergy status to other drugs, medicaments and biological substances
CPT/HCPCS: 81001; 87077; 87086; 87186; 99284

== ENCOUNTER → 2017-11-04 | Outpatient (CLI) | payer BC ==
[2017-11-04 16:50] LABS: Anion Gap 12 mmol/L; Blood Urea Nitrogen 5 mg/dL (7-17); Calcium 9.6 mg/dL (8.4-10.2); Carbon Dioxide 25 mmol/L (22-30); Chloride 103 mmol/L (98-107); Glucose 111 mg/dL (74-99); Potassium 4.4 mmol/L (3.5-5.1); Sodium 140 mmol/L (137-145)
[2017-11-04 18:24] LABS: Basophils # (A) 0.1 k/uL (0-0.2); Basophils % (A) 1 %; Eosinophils # (A) 0.4 k/uL (0-0.7); Eosinophils % (A) 2 %; HCT 43.3 % (34.0-46.0); HGB 13.9 gm/dL (11.4-16.0); Lymphocytes # (A) 2.3 k/uL (1.0-4.8); Lymphocytes % (A) 14 %; MCH 29.4 pg (25.0-35.0); MCV 91.9 fL (80.0-100.0); Mean Platelet Volume 7.8; Monocytes # (A) 0.7 k/uL (0-1.0); Monocytes % (A) 5 %; Neutrophils # (A) 12.7 k/uL (1.3-7.7); Neutrophils % (A) 78 %; Platelet Count 427 k/uL (150-450); RBC 4.71 m/uL (3.80-5.40); RDW 14.6 % (11.5-15.5); WBC 16.3 k/uL (3.8-10.6)
== END | disposition home or self-care (01) ==
LOC: LABPAT 15:54
PROVIDERS: ATTEND Obstetrics & Gynecology
DX: Z01.812 Encounter for preprocedural laboratory examination (principal)
CPT/HCPCS: 36415; 80048; 85025

== ENCOUNTER 2017-11-13 08:01 | Observation (INO) | payer BC ==
[2017-11-05 13:07] VITALS: BMI 29.2
--- NOTE | 2017-11-12 16:51 | P.HPOB ---
History of Present Illness H&P Date: 11/12/17 Chief Complaint: pelvic pain 46-year-old female presents for total laparoscopic hysterectomy, diagnostic cystoscopy, possible total abdominal hysterectomy and bilateral salpingo- oophorectomy. she has had a NovaSure ablation in the past and recently started having cycles again with increased and severe pain. D&C to relieve the hematometra area resolved the pain for a very short period of time. The pain returned and today she presents for removal of the uterus Review of Systems All systems: negative Constitutional: Denies chills, Denies fever Eyes: denies blurred vision, denies pain Ears, nose, mouth and throat: Denies headache, Denies sore throat Cardiovascular: Denies chest pain, Denies shortness of breath Respiratory: Denies cough Gastrointestinal: Denies abdominal pain, Denies diarrhea, Denies nausea, Denies vomiting Genitourinary: Denies dysuria, Denies hematuria Musculoskeletal: Denies myalgias Integumentary: Denies pruritus, Denies rash Neurological: Denies numbness, Denies weakness Psychiatric: Denies anxiety, Denies depression Endocrine: Denies fatigue, Denies weight change Past Medical History Past Medical History: Neurologic Disorder Additional Past Medical History / Comment(s): MIGRAINES History of Any Multi-Drug Resistant Organisms: None Reported Past Surgical History: Breast Surgery, Uterine Ablation Additional Past Surgical History / Comment(s): RT BREAST BX, Novasure ablation. COLONOSCOPY. D & C Past Anesthesia/Blood Transfusion Reactions: No Reported Reaction Smoking Status: Current every day smoker - Past Family History Mother Family Medical History: No Reported History Medications and Allergies Home Medications Medication Instructions Recorded Confirmed Type Acetaminophen Tab [Tylenol Tab] 650 mg PO Q6H PRN 09/21/17 11/05/17 History Hydrocodone/Acetaminophen [[place] 1 tab PO Q4-6H PRN #15 tab 10/06/17 11/05/17 Rx 5-325] traMADol HCL [Ultram] 50 mg PO TID PRN 11/10/17 11/10/17 History Allergies Allergy/AdvReac Type Severity Reaction Status Date / Time varenicline [From Chantix] AdvReac Hallucinati Verified 11/05/17 12:56 ons Exam Osteopathic Statement: *. No significant issues noted on an osteopathic structural exam other than those noted in the History and Physical/Consult. Heart: Regular rate and rhythm Lungs: Clear to auscultation bilaterally Abdomen: Soft, nontender Extremities: Negative Homans sign Assessment and Plan (1) Hematometra Status: Acute Code(s): N85.7 - HEMATOMETRA SNOMED Code(s): 12329704 (2) Pelvic pain Status: Acute Code(s): R10.2 - PELVIC AND PERINEAL PAIN SNOMED Code(s): 61887604 Plan: 1. Total laparoscopic hysterectomy with da Sean and diagnostic cystoscopy, possible total abdominal hysterectomy bilateral salpingo-oophorectomy.
[~2017-11-13 08:01] MED LIST changes: +DEXAMETHASONE SOD PHOSPHATE 10 MG/ML 1 ML VIAL IV ONE; -LACTATED RINGERS 1,000 ML IV ONE; -LIDOCAINE 1% 20 ML VIAL (10MG/ML) FOR IV START INTRADERMA PRN; +MIDAZOLAM 2 MG/2 ML VIAL IV PRN; +ONDANSETRON 4 MG/2 ML VIAL IVP ONE; +ceFAZolin IN SWFI 2 GM/20 ML SYRINGE IVP ONE
[2017-11-13] MEDS: LACTATED RINGERS 1,000 ML IV SCH ×2 (08:41→16:27)
[2017-11-13] MEDS ORDERED: BUPIVACAINE (PF) 0.5% 30 ML VIAL SQ ONE ×3 (09:04→11:00)
[2017-11-13] MEDS ORDERED: LIDOCAINE 1% INJ 10MG/ML (20 ML MDV) ONE (09:10)
[2017-11-13] MEDS ORDERED: GLYCOPYRROLATE 0.2 MG/ML 2 ML VIAL ONE (09:10)
[2017-11-13] MEDS ORDERED: NEOSTIGMINE 1 MG/ML 10 ML VIAL ONE (09:10)
[2017-11-13] MEDS ORDERED: HYDROmorphone (PF) 1 MG/ML ONE (09:10)
[2017-11-13] MEDS ORDERED: cefTRIAXone 250 MG VIAL ONE (09:10)
[2017-11-13] MEDS ORDERED: MIDAZOLAM 2 MG/2 ML VIAL ONE (09:10)
[2017-11-13] MEDS ORDERED: KETOROLAC 30 MG/ML 1 ML VIAL ONE (09:10)
[2017-11-13] MEDS ORDERED: SUCCINYLCHOLINE CHLORIDE 100 MG/5 ML SYR IV ONE (09:10)
[2017-11-13] MEDS ORDERED: fentaNYL (PF) 50 MCG/ML 2 ML AMP ONE (09:10)
[2017-11-13] MEDS ORDERED: ROCURONIUM BROMIDE 10 MG/ML 10 ML VIAL IV ONE (09:10)
[2017-11-13] MEDS ORDERED: PROPOFOL 10 MG/ML 20 ML VIAL IV ONE (09:10)
[2017-11-13] MEDS ORDERED: AZITHROMYCIN 500 MG VIAL IVPB ONE (09:10)
[2017-11-13] MEDS ORDERED: ACETAMINOPHEN IV (For NPO) 1,000 MG/100 ML VIAL ONE (09:10)
[2017-11-13] MEDS ORDERED: cefTRIAXone 250 MG VIAL IM STA (10:13)
[2017-11-13] MEDS ORDERED: LACTATED RINGERS 1,000 ML IV ONE (10:59)
--- NOTE | 2017-11-13 11:15 | P.OP ---
Date of Procedure: 11/13/17 Preoperative Diagnosis: 1. pelvic pain Postoperative Diagnosis: 1. Pelvic pain 2. pyosalpinx 3. enlarged uterus Procedure(s) Performed: Total laparoscopic hysterectomy and bilateral salpingectomy with da Sean, diagnostic cystoscopy Anesthesia: TAMARA Surgeon: Elizabeth Johnson Principal Product Manager #1: Leodan Bagley Estimated Blood Loss (ml): 200 IV fluids (ml): 1,300 Urine output (ml): 50 Pathology: other (Uterus cervix bilateral fallopian tubes) Condition: stable Disposition: PACU Operative Findings: Enlarged uterus, there was purulent drainage from both fallopian tubes, filmy adhesions to the pelvic sidewalls and the anterior and posterior uterus. Description of Procedure: Patient taken the operating room where general anesthesia was obtained without difficulty. She is prepped and draped in normal sterile fashion dorsal lithotomy position, legs placed in the Wicho stirrups. Weighted speculum placed in the vagina and the anterior lip the cervix was grasped with single- tooth tenaculum. The uterus sounded to 10 cm and the cervix diameter was 3 cm. The appropriate manipulator tip and ring were placed on the Rbea manipulator. The Reba manipulator was then placed in the uterus. Sagastume catheter was also placed. Attention was then turned to the abdomen and gloves were changed. A 5 mm supraumbilical incision was made the scalpel and a 5 mm optical trocar was placed under direct visualization. 10 cm to the right of this and 2 cm down a 5 mm incision was made and 8 mm da Sean port was placed under direct visualization. Same measurements on the opposite side of the patient's abdomen , the 5 mm incision was made and 8 mm da Sean port was placed under direct visualization. In the left upper quadrant a 10 mm incision was made and a 10 mm optical trocar was placed under direct visualization. The 5 mm optical trocar was then replaced with the 8 mm da Sean camera port. The robot was docked on patient's right side. The camera was introduced and then the monopolar curved scissor and [place] bipolar placed under direct visualization. I broke scrub and went to the physician console. The left utero -ovarian ligament was cauterized with the [place] bipolar and cut with monopolar curved scissors. The left round ligament was cauterized with the [place] bipolar and cut with monopolar curved scissors. The posterior leaf of the broad ligament was taken down using the monopolar curved scissors. Anterior leaf of the broad ligament was then taken down using the monopolar curved scissors. The uterine artery was cauterized with the [place] bipolar and cut with monopolar curved scissors. The bladder flap was then started using the monopolar curved scissors. Attention was then turned to the right side of the patient's anatomy and the right ovary and fallopian tube were noted to be adhered to the right pelvic sidewall. We were peeled off this using the monopolar without any cautery. At this time some purulent drainage came from the fallopian tube and it was determined that the fallopian tube needed to be removed. The mesosalpinx was dissected, cauterized with the [place] bipolar and then cut with the monopolar curved scissors. The right utero-ovarian ligament was cauterized with the [place] bipolar and cut with monopolar curved scissors. The right round ligament was cauterized with the [place] bipolar and cut with monopolar curved scissors. Posterior leaf of the broad ligament was taken down using the monopolar curved scissors and the anterior leaf was taken down using the monopolar curved scissors. The uterine artery was cauterized the [place] bipolar cut with monopolar curved scissors. The bladder flap was then finished on this side. Anterior colpotomy was made using the monopolar curved scissors. The rest of the uterus was from the vaginal cuff by following the ring around with the monopolar curved scissors through the uterosacral ligaments back to the anterior portion. Once the uterus and cervix were amputated they were pulled through the vaginal cuff. Hemostasis was assured. The instruments were changed for the Cardier forcep and the tristin suture cut. The vaginal cuff was then closed using 2-O stratafix barbed suture in a running fashion. I took over the left fallopian tube again and noted that there was some purulent drainage coming from that side to. The left mesosalpinx was dissected, cauterized with the [place] bipolar and cut with the monopolar curved scissors. This fallopian tube was freed from the underlying ovary and removed through the behavioral assistant port. Hemostasis was again assured and the pelvis was irrigated. All instruments were removed from the abdomen and the robot was undocked. I scrubbed back in to perform a cystoscopy. There were jets from both ureteral orifices. The abdominal incisions were closed with 4-0 Vicryl in a subcuticular fashion. Patient tolerated the procedure well, sponge and instrument counts correct 2 and she was taken to recovery room in stable condition condition
[2017-11-13] MEDS: AZITHROMYCIN 500 MG in SODIUM CHLORIDE 0.9% 250 ML IVPB STA ×2 (11:29→12:33)
[2017-11-13] MEDS: HYDROmorphone 0.5 MG/0.5 ML SYRINGE IVP PRN ×2 (12:14→12:19)
[2017-11-13] MEDS ORDERED: ONDANSETRON 4 MG/2 ML VIAL IVP PRN (13:06)
[2017-11-13] MEDS ORDERED: METOCLOPRAMIDE 5 MG/ML 2 ML VIAL IVP PRN (13:06)
[2017-11-13] MEDS ORDERED: SIMETHICONE 80 MG CHEWABLE PO PRN (13:06)
[2017-11-13] MEDS ORDERED: diphenhydrAMINE 50 MG/ML 1 ML VIAL IVP PRN (13:06)
[2017-11-13] MEDS: KETOROLAC 30 MG/ML 1 ML VIAL IVP PRN ×2 (17:04→23:18)
[2017-11-13] MEDS: HYDROcodone/APAP 7.5-325MG 1 EACH TAB PO PRN (19:00)
[2017-11-13] MEDS: SENNOSIDES-DOCUSATE SODIUM 1 EACH TAB PO SCH (20:53)
[2017-11-14] MEDS: LACTATED RINGERS 1,000 ML IV SCH (01:30)
[2017-11-14] MEDS: HYDROcodone/APAP 7.5-325MG 1 EACH TAB PO PRN (04:40)
[2017-11-14 04:48] VITALS: PULSE 64
[2017-11-14 06:50] LABS: Basophils % (A) 0 %; Eosinophils # (A) 0.2 k/uL (0-0.7); Eosinophils % (A) 1 %; HCT 33.6 % (34.0-46.0); Lymphocytes # (A) 2.5 k/uL (1.0-4.8); Lymphocytes % (A) 11 %; MCH 29.9 pg (25.0-35.0); MCHC 32.8 g/dL (31.0-37.0); MCV 91.2 fL (80.0-100.0); Mean Platelet Volume 6.9; Monocytes # (A) 1.1 k/uL (0-1.0); Monocytes % (A) 5 %; Neutrophils # (A) 18.5 k/uL (1.3-7.7); Neutrophils % (A) 83 %; Platelet Count 353 k/uL (150-450); RBC 3.69 m/uL (3.80-5.40); RDW 15.4 % (11.5-15.5); WBC 22.4 k/uL (3.8-10.6)
--- NOTE | 2017-11-14 08:06 | P.DS ---
Providers Date of admission: 11/14/17 00:59 Expected date of discharge: 11/14/17 Attending physician: Elizabeth Johnson Primary care physician: Jodi Mcmillan - Discharge Diagnosis(es) (1) Hematometra Current Visit: Yes Status: Resolved (2) Pelvic pain Current Visit: Yes Status: Resolved (3) History of robot-assisted laparoscopic hysterectomy Current Visit: Yes Status: Acute Hospital Course: Patient presented for TLH with da roxie. She underwent TLH with BS with da roxie and had no complications. It was found she did have pyosalpinx so did receive extra antibiotics and will go home on zithromax for a week. She remains afebrile though her wbcs increased from 16 to 22. She is ambulating, voiding, passsing flatus and tolerating a reg diet. Incisions are C/D/I. She will be discharged home to follow up with me in 3 weeks. Plan - Discharge Summary Discharge Rx Participant: Yes New Discharge Prescriptions: New HYDROcodone/APAP 7.5-325MG [Erwin 7.5-325] 1 each PO Q6H PRN #14 tab PRN Reason: MODERATE Pain Ibuprofen [Motrin] 600 mg PO Q6HR PRN #30 tab PRN Reason: Mild Pain Or Fever >= 100.5 No Action Acetaminophen Tab [Tylenol Tab] 650 mg PO Q6H PRN PRN Reason: Pain Hydrocodone/Acetaminophen [Erwin 5-325] 1 tab PO Q4-6H PRN #15 tab PRN Reason: Pain traMADol HCL [Ultram] 50 mg PO TID PRN PRN Reason: Pain Discharge Medication List Acetaminophen Tab [Tylenol Tab] 650 mg PO Q6H PRN 09/21/17 [History] Hydrocodone/Acetaminophen [Erwin 5-325] 1 tab PO Q4-6H PRN #15 tab 10/06/17 [Rx] traMADol HCL [Ultram] 50 mg PO TID PRN 11/10/17 [History] HYDROcodone/APAP 7.5-325MG [Erwin 7.5-325] 1 each PO Q6H PRN #14 tab 11/14/17 [ Rx] Ibuprofen [Motrin] 600 mg PO Q6HR PRN #30 tab 11/14/17 [Rx] Follow up Appointment(s)/Referral(s): Elizabeth Johnson DO [Doctor of Osteopathic Medicine] - 3 Weeks Discharge Disposition: HOME SELF-CARE
[2017-11-14] MEDS ORDERED: AZITHROMYCIN 500 MG TAB PO STA (08:09)
[2017-11-14 08:31] VITALS: BP 112/68; RESP 19; TEMP 97.8
[2017-11-14] MEDS: SENNOSIDES-DOCUSATE SODIUM 1 EACH TAB PO SCH (08:49)
[2017-11-14] MEDS: KETOROLAC 30 MG/ML 1 ML VIAL IVP PRN (08:58)
== END 2017-11-14 10:59 | disposition home or self-care (01) ==
LOC: OR 08:01 → 6PED 11:25 → OR 11-14 00:59
PROVIDERS: ADMIT Obstetrics & Gynecology; ATTEND Obstetrics & Gynecology
DX: N85.7 Hematometra (principal); N85.2 Hypertrophy of uterus; N70.91 Salpingitis, unspecified; D25.9 Leiomyoma of uterus, unspecified; G43.909 Migraine, unspecified, not intractable, without status migrainosus; F17.200 Nicotine dependence, unspecified, uncomplicated; Z88.8 Allergy status to other drugs, medicaments and biological substances
CPT/HCPCS: 58554; S2900; 81025; 85025; 86850; 86900; 86901; 88307

== ENCOUNTER → 2018-01-16 | Outpatient (CLI) | payer BC ==
--- NOTE | 2018-01-20 12:17 | MM ---
Reason for exam: screening (asymptomatic). Last mammogram was performed 1 year and 5 months ago. History: Patient is postmenopausal. Family history of breast cancer in paternal aunt at age 52 and breast cancer in paternal grandmother at age 81. Benign excisional biopsy, 2013. Physical Findings: A clinical breast exam by your physician is recommended on an annual basis and results should be correlated with mammographic findings. MG Screening Mammo w CAD Bilateral CC and MLO view(s) were taken. Prior study comparison: August 21, 2016, bilateral MG screening mammo w CAD. August 04, 2015, bilateral MG screening mammo w CAD. There are scattered fibroglandular densities. Previous mammotome biopsy in the right breast. No significant changes when compared with prior studies. ASSESSMENT: Benign, BI-RAD 2 RECOMMENDATION: Routine screening mammogram of both breasts in 1 year.
== END | disposition home or self-care (01) ==
LOC: RADMAMWWP 07:29
PROVIDERS: ATTEND Family Medicine
DX: Z12.31 Encounter for screening mammogram for malignant neoplasm of breast (principal)
CPT/HCPCS: 77067

== ENCOUNTER → 2018-09-25 | Outpatient (CLI) | payer OTHER ==
[2018-09-25 16:28] LABS: Anion Gap 7 mmol/L; Blood Urea Nitrogen 7 mg/dL (7-17); Calcium 9.6 mg/dL (8.4-10.2); Carbon Dioxide 25 mmol/L (22-30); Chloride 105 mmol/L (98-107); Glucose 96 mg/dL (74-99); Potassium 4.2 mmol/L (3.5-5.1); Sodium 137 mmol/L (137-145)
[2018-09-25 16:47] LABS: Basophils # (A) 0.1 k/uL (0-0.2); Basophils % (A) 1 %; Eosinophils # (A) 0.3 k/uL (0-0.7); Eosinophils % (A) 3 %; HCT 36.8 % (34.0-46.0); HGB 11.5 gm/dL (11.4-16.0); Lymphocytes # (A) 2.5 k/uL (1.0-4.8); Lymphocytes % (A) 20 %; MCH 29.6 pg (25.0-35.0); MCHC 31.2 g/dL (31.0-37.0); MCV 94.9 fL (80.0-100.0); Mean Platelet Volume 7.6; Monocytes # (A) 0.7 k/uL (0-1.0); Monocytes % (A) 5 %; Neutrophils # (A) 8.6 k/uL (1.3-7.7); Neutrophils % (A) 69 %; Platelet Count 398 k/uL (150-450); RBC 3.88 m/uL (3.80-5.40); RDW 13.3 % (11.5-15.5); WBC 12.4 k/uL (3.8-10.6)
== END ==
LOC: LABPAT 15:44
PROVIDERS: ATTEND Obstetrics & Gynecology
DX: Z01.812 Encounter for preprocedural laboratory examination (principal)
CPT/HCPCS: 80048; 85025

== ENCOUNTER 2018-10-01 07:18 | Day surgery (SDC) | payer OTHER ==
[2018-09-23 15:12] VITALS: BMI 31.2
--- NOTE | 2018-09-30 13:03 | P.HPOB ---
History of Present Illness H&P Date: 09/30/18 Chief Complaint: pelvic pain, ovarian cyst 47 year old G0 presents for laparoscopic left salpingo-oopherectomy. She has pelvic pain, early satiety, bloating and a 5 cm cyst on the left ovary. CA-125 normal at 6.8. Review of Systems All systems: negative Constitutional: Denies chills, Denies fever Eyes: denies blurred vision, denies pain Ears, nose, mouth and throat: Denies headache, Denies sore throat Cardiovascular: Denies chest pain, Denies shortness of breath Respiratory: Denies cough Gastrointestinal: Denies abdominal pain, Denies diarrhea, Denies nausea, Denies vomiting Genitourinary: Denies dysuria, Denies hematuria Musculoskeletal: Denies myalgias Integumentary: Denies pruritus, Denies rash Neurological: Denies numbness, Denies weakness Psychiatric: Denies anxiety, Denies depression Endocrine: Denies fatigue, Denies weight change Past Medical History Past Medical History: Neurologic Disorder Additional Past Medical History / Comment(s): HX MIGRAINES, last one 4 yrs ago. History of Any Multi-Drug Resistant Organisms: None Reported Past Surgical History: Breast Surgery, Hysterectomy (da vinici), Uterine Ablation Additional Past Surgical History / Comment(s): RT BREAST BX. COLONOSCOPY. D & C Past Anesthesia/Blood Transfusion Reactions: No Reported Reaction Past Psychological History: Depression Additional Psychological History / Comment(s): No current issues with depression. Smoking Status: Current every day smoker Past Alcohol Use History: Occasional Additional Past Alcohol Use History / Comment(s): SMOKING 3/4 PPD OR LESS SINCE AGE 25. Past Drug Use History: Marijuana Additional Drug Use History / Comment(s): Hx Marijuana use, last used in November 2017. - Past Family History Mother Family Medical History: COPD Additional Family Medical History / Comment(s): emphysema, carotids done. valve replacement. 3 stents. blood clots. Medications and Allergies Home Medications Medication Instructions Recorded Confirmed Type Acetaminophen Tab [Tylenol Tab] 650 mg PO Q6H PRN 09/21/17 09/23/18 History Loratadine/Pseudoephedrine 1 each PO DAILY 09/23/18 09/23/18 History [Loratadine-D 24Hr Tablet] Allergies Allergy/AdvReac Type Severity Reaction Status Date / Time No Known Allergies Allergy Verified 09/23/18 15:14 Exam Osteopathic Statement: *. No significant issues noted on an osteopathic structural exam other than those noted in the History and Physical/Consult. HEart: RRR Lungs: CTAB Abdomen: soft, tender LLQ Extremeties: neg peter's Assessment and Plan (1) Ovarian cyst Status: Acute Code(s): N83.209 - UNSPECIFIED OVARIAN CYST, UNSPECIFIED SIDE SNOMED Code(s): 73454312 (2) Pelvic pain Status: Resolved Code(s): R10.2 - PELVIC AND PERINEAL PAIN SNOMED Code(s): 24093390 Plan: 1. laparoscopic left salpingo-oopherectomy using da roxie
[~2018-10-01 07:18] MED LIST changes: +LIDOCAINE 1% 20 ML VIAL (10MG/ML) FOR IV START INTRADERMA PRN; -MIDAZOLAM 2 MG/2 ML VIAL IV PRN; +SCOPOLAMINE 1.5MG/72HR PATCH TRANSDERM ONE
[2018-10-01] MEDS: LACTATED RINGERS 1,000 ML IV SCH ×2 (07:54→07:55)
[2018-10-01] MEDS ORDERED: GLYCOPYRROLATE 0.2 MG/ML 2 ML VIAL ONE (09:23)
[2018-10-01] MEDS ORDERED: MIDAZOLAM 2 MG/2 ML VIAL ONE (09:23)
[2018-10-01] MEDS ORDERED: SUCCINYLCHOLINE CHLORIDE 100 MG/5 ML SYR IV ONE (09:23)
[2018-10-01] MEDS ORDERED: fentaNYL (PF) 50 MCG/ML 2 ML AMP ONE (09:23)
[2018-10-01] MEDS ORDERED: NEOSTIGMINE 1 MG/ML 10 ML VIAL ONE (09:23)
[2018-10-01] MEDS ORDERED: ROCURONIUM BROMIDE 10 MG/ML 10 ML VIAL IV ONE (09:23)
[2018-10-01] MEDS ORDERED: LIDOCAINE 1% INJ 10MG/ML (20 ML MDV) ONE (09:23)
[2018-10-01] MEDS ORDERED: PROPOFOL 10 MG/ML 20 ML VIAL IV ONE (09:23)
[2018-10-01] MEDS ORDERED: BUPIVACAINE (PF) 0.5% 30 ML VIAL SQ ONE (09:52)
--- NOTE | 2018-10-01 10:35 | P.OP ---
Date of Procedure: 10/01/18 Preoperative Diagnosis: 1. left ovarian cyst 2. pelvic pain Postoperative Diagnosis: 1. left ovarian cyst 2. pelvic pain 3. adhesions 4. follicular cysts right ovary Procedure(s) Performed: Laparoscopic left oophorectomy with lysis of adhesions, aspiration of multiple right ovarian cysts, using da Sean Anesthesia: TAMARA Surgeon: Elizabeth Johnson Estimated Blood Loss (ml): 5 IV fluids (ml): 300 Urine output (ml): 50 Pathology: other (Left ovary) Condition: stable Disposition: PACU Operative Findings: There was a great deal of filmy scar tissue in the pelvis from the bowels. The sigmoid colon was attached to the left sidewall and the left ovary with filmy adhesions. There was a large cyst on the left ovary had clear fluid, multiple follicular cysts on the right ovary all with clear fluid. Description of Procedure: Patient taken the operating room where general anesthesia was obtained without difficulty. She is prepped and draped in normal sterile fashion dorsal lithotomy position, legs placed in the [place]o stirrups. The bladder was drained of all urine. Attention was then turned to the abdomen and gloves were changed. A 5 mm supraumbilical incision was made the scalpel and a 5 mm optical trocar was placed under direct visualization. 10 cm to the right of this and 2 cm down a 5 mm incision was made and 8 mm da Sean port was placed under direct visualization. Same measurements on the opposite side of the patient's abdomen, the 5 mm incision was made and 8 mm da Sean port was placed under direct visualization. In the left upper quadrant a 10 mm incision was made and a 10 mm optical trocar was placed under direct visualization. The 5 mm optical trocar was then replaced with the 8 mm da Sean camera port. The robot was docked on patient's right side. The camera was introduced and then the monopolar curved scissor and [place] bipolar placed under direct visualization. I broke scrub and went to the physician console. Survey of the pelvis revealed multiple bowel and pelvic adhesions. The right ovary was visible along the right pelvic sidewall, multiple small follicular cysts were noted and the [place] bipolar was used to drain the cysts. The filmy adhesions were cut without cautery along the left pelvic sidewall to mobilize the sigmoid colon and final left ovary. Left ovary was also adhered to the left pelvic sidewall and the sigmoid colon. The ovary was carefully peeled off the sigmoid colon, the left infundibulopelvic ligament was recognized cauterized with the [place] bipolar and cut through with the monopolar curved scissors. The rest of the ovary was dissected from the underlying tissues. The left ovary was then placed into a 10 mm Endo Catch bag and removed from the left executive sales assistant port. Hemostasis was assured and the pelvis was irrigated. All instruments were removed from the abdomen and the robot was undocked. The abdominal incisions were closed with 4-0 Vicryl in a subcuticular fashion. Patient tolerated the procedure well, sponge and instrument counts correct 2 and she was taken to recovery room in stable condition condition
[2018-10-01 10:37] VITALS: TEMP 97.3
[2018-10-01] MEDS: HYDROmorphone 0.5 MG/0.5 ML SYRINGE IVP PRN ×4 (10:48→11:50)
[2018-10-01 12:24] VITALS: BP 115/79; PULSE 67; RESP 16
[2018-10-01] MEDS ORDERED: HYDROcodone/APAP 5-325MG 1 EACH TAB PO ONE (12:24)
== END 2018-10-01 12:56 | disposition home or self-care (01) ==
LOC: OR 07:18
PROVIDERS: ATTEND Obstetrics & Gynecology
DX: N83.12 Corpus luteum cyst of left ovary (principal); N83.202 Unspecified ovarian cyst, left side; R10.2 Pelvic and perineal pain; K66.0 Peritoneal adhesions (postprocedural) (postinfection); F17.210 Nicotine dependence, cigarettes, uncomplicated
CPT/HCPCS: 88307; 58661; J2250; J1100; J2710; J2405; J2001; J3010; J0330; J2704; J1170; J0690; 36415; 86850; 86900; 86901

== ENCOUNTER → 2019-06-25 | Outpatient (CLI) | payer OTHER ==
--- NOTE | 2019-06-25 10:29 | MM ---
Reason for exam: screening (asymptomatic). Last mammogram was performed 1 year and 5 months ago. History: Patient is postmenopausal. Family history of breast cancer in paternal aunt at age 52 and breast cancer in paternal grandmother at age 81. Benign excisional biopsy, 2013. Physical Findings: A clinical breast exam by your physician is recommended on an annual basis and results should be correlated with mammographic findings. MG Screening Mammo w CAD Bilateral CC and MLO view(s) were taken. Prior study comparison: January 16, 2018, bilateral MG screening mammo w CAD. August 21, 2016, bilateral MG screening mammo w CAD. There are scattered fibroglandular densities. There are benign appearing round calcifications bilaterally. Previous mammotome biopsy in the left breast. There is no discrete abnormality. ASSESSMENT: Benign, BI-RAD 2 RECOMMENDATION: Routine screening mammogram of both breasts in 1 year.
== END | disposition home or self-care (01) ==
LOC: RADMAMWWP 08:08
PROVIDERS: ATTEND Family Medicine
DX: Z12.31 Encounter for screening mammogram for malignant neoplasm of breast (principal); Z80.3 Family history of malignant neoplasm of breast
CPT/HCPCS: 77067

== ENCOUNTER → 2021-01-30 | Outpatient (CLI) | payer MEDICAID ==
--- NOTE | 2021-02-01 10:07 | MM ---
Reason for exam: screening (asymptomatic). Last mammogram was performed 1 year and 7 months ago. History: Patient is postmenopausal. Family history of breast cancer in paternal aunt at age 52 and breast cancer in paternal grandmother at age 81. Benign excisional biopsy, 2013. Physical Findings: A clinical breast exam by your physician is recommended on an annual basis and results should be correlated with mammographic findings. MG 3D Screening Mammo W/Cad Bilateral CC and MLO view(s) were taken. Prior study comparison: June 25, 2019, bilateral MG screening mammo w CAD. January 16, 2018, bilateral MG screening mammo w CAD. August 21, 2016, bilateral MG screening mammo w CAD. There are scattered fibroglandular densities. Previous mammotome biopsy in the right breast. No significant changes when compared with prior studies. ASSESSMENT: Benign, BI-RAD 2 RECOMMENDATION: Routine screening mammogram of both breasts in 1 year.
== END | disposition home or self-care (01) ==
LOC: RADMAMWWP 16:02
PROVIDERS: ATTEND Family Medicine
DX: Z12.31 Encounter for screening mammogram for malignant neoplasm of breast (principal)
CPT/HCPCS: 77063; 77067

== ENCOUNTER → 2021-06-22 | Outpatient (CLI) | payer MEDICAID ==
--- NOTE | 2021-06-22 13:00 | ECHOF ---
Referral Reason:I07.1 abnormal EKG MEASUREMENTS -------- HEIGHT: 152.4 cm WEIGHT: 70.3 kg BP: RVIDd: 2.6 cm (< 3.3) IVSd: 0.8 cm (0.6 - 1.1) LVIDd: 4.8 cm (3.9 - 5.3) LVPWd: 1.0 cm (0.6 - 1.1) IVSs: 1.1 cm LVIDs: 3.3 cm LVPWs: 1.4 cm LAESV Index (A-L): 31.63 ml/m MV EXCURSION: 19.740 mm (> 18.000) MV EF SLOPE: 64 mm/s (70 - 150) EPSS: 0.2 cm MV E Channing: 0.80 m/s MV DecT: 168 ms MV A Channing: 0.63 m/s MV E/A Ratio: 1.25 RAP: 5.00 mmHg RVSP: 16.42 mmHg FINDINGS -------- Sinus rhythm. This was a technically good study. LV size, wall thickness and systolic function are normal, with an EF greater than 55%. The left agatha tricular size is normal. The right ventricle is normal in size. LA is midly dilated 29-33ml/m2. The right atrial size is normal. There is mild aortic valve sclerosis. There is no evidence of aortic regurgitation. Mild mitral annular calcification present. Mild mitral regurgitation is present. Mild tricuspid regurgitation present. Right ventricular systolic pressure is normal at < 35 mmHg. There is no pulmonic regurgitation present. Echo free space represents a pericardial fat pad. There is no pericardial effusion. CONCLUSIONS -------- 1. LV size, wall thickness and systolic function are normal, with an EF greater than 55%. 2. The left ventricular size is normal. 3. The right ventricle is normal in size. 4. LA is midly dilated 29-33ml/m2. 5. The right atrial size is normal. 6. There is mild aortic valve sclerosis. 7. Mild mitral annular calcification present. 8. Mild mitral regurgitation is present. 9. Mild tricuspid regurgitation present. 10. Echo free space represents a pericardial fat pad. 11. There is no pericardial effusion. CUSTOMER SERVICE TELLER: Whitney Ibarra RDCS
== END | disposition home or self-care (01) ==
LOC: RADECHMAIN 12:04
PROVIDERS: ATTEND Family Medicine
DX: I07.1 Rheumatic tricuspid insufficiency (principal); R94.31 Abnormal electrocardiogram [ECG] [EKG]; I35.8 Other nonrheumatic aortic valve disorders; I70.90 Unspecified atherosclerosis; I34.0 Nonrheumatic mitral (valve) insufficiency
CPT/HCPCS: 93306

== ENCOUNTER → 2022-03-14 | Outpatient (CLI) | payer MEDICAID ==
[2022-03-14 19:05] LABS: Estradiol <5.0 pg/mL; Testosterone <2.50 ng/mL (7.00-45.62)
[2022-03-14 19:18] LABS: ALT 13 U/L (8-44); AST 13 U/L (13-35); African American GFR (CKD) 116.3 (60.0-200.0); Albumin 4.2 g/dL (3.8-4.9); Albumin/Globulin Ratio 1.62 (1.60-3.17); Alkaline Phosphatase 86 U/L (41-126); BUN/Creat Ratio 6.57 Ratio (12.00-20.00); Blood Urea Nitrogen 4.6 mg/dL (9.0-27.0); Calcium 9.7 mg/dL (8.7-10.3); Carbon Dioxide 23.1 mmol/L (20.0-27.5); Chloride 103 mmol/L (96-109); Chol/HDL Ratio 2.81 Ratio; Globulin 2.6 g/dL (1.6-3.3); Glucose 132 mg/dL (70-110); LDL Cholesterol,Calculated 65.9 mg/dL (0.0-131.0); Luteinizing Hormone 36.6 mIU/mL; Non-African American GFR(CKD) 100.3 (60.0-200.0); Potassium 4.2 mmol/L (3.5-5.5); Sodium 139 mmol/L (135-145); Total Protein 6.8 g/dL (6.2-8.2)
[2022-03-14 19:30] LABS: HCT 44.4 % (37.2-46.3); HGB 14.4 g/dL (12.0-15.0); MCH 29.6 pg (27.0-32.0); MCHC 32.4 g/dL (32.0-37.0); MCV 91.4 fL (80.0-97.0); Mean Platelet Volume 10.1 fL (9.5-12.2); NRBC Per 100 WBC 0 /100 WBCS (0.0-0.0); Platelet Count 429 X 10*3/uL (140-440); RBC 4.86 X 10*6/uL (4.10-5.20); RDW 13.1 % (11.5-14.5)
[2022-03-14 19:56] LABS: Follicle Stimulating Hormone 52.9 mIU/mL
== END | disposition home or self-care (01) ==
LOC: LABWHC1 11:40
PROVIDERS: ATTEND Nurse Practitioner Family
DX: Z00.00 Encounter for general adult medical examination without abnormal findings (principal)
CPT/HCPCS: 36415; 80053; 80061; 82670; 83001; 83002; 83036; 84402; 84403; 84443; 85027

== ENCOUNTER → 2022-05-22 | Outpatient (CLI) | payer MEDICAID ==
--- NOTE | 2022-05-23 18:50 | MM ---
Reason for Exam: Screening (asymptomatic). Last mammogram was performed 1 year(s) and 4 month(s) ago. Patient History: Menarche at age 15. Patient has no children. Left ovary removed at age 47. Hysterectomy at age 47. Postmenopausal. 2012, Benign Excisional Biopsy on the right side. Paternal grandmother had breast cancer, age 81. Paternal aunt had breast cancer, age 52. Risk Values: Bree 5 year model risk: 1.2%. NCI Lifetime model risk: 10.4%. Prior Study Comparison: 01/16/2018 Bilateral Screening Mammogram, [facility]. 06/25/2019 Bilateral Screening Mammogram, [facility]. 01/30/2021 Bilateral Screening Mammogram, [facility]. Tissue Density: There are scattered fibroglandular densities. Findings: Analyzed By CAD. Microclip posterior right breast from prior biopsy. There is no suspicious group of microcalcifications or new suspicious mass in either breast. Overall Assessment: Benign, BI-RAD 2 Management: Screening Mammogram of both breasts in 1 year. 1. Patient should continue monthly self breast exams. 2. A clinical breast exam by your physician is recommended on an annual basis. 3. This exam should not preclude additional follow-up of suspicious palpable abnormalities. Electronically signed and approved by: Sally Arreola M.D. Radiologist
== END | disposition home or self-care (01) ==
LOC: RADMAMWWP 13:38
PROVIDERS: ATTEND Family Medicine
DX: Z12.31 Encounter for screening mammogram for malignant neoplasm of breast (principal); Z78.0 Asymptomatic menopausal state; Z80.3 Family history of malignant neoplasm of breast; Z90.721 Acquired absence of ovaries, unilateral
CPT/HCPCS: 77063; 77067

== ENCOUNTER → 2023-05-02 | Outpatient (CLI) | payer MEDICAID ==
--- NOTE | 2023-05-02 10:24 | CT ---
EXAMINATION: CT ABDOMEN AND PELVIS WITHOUT IV CONTRAST DATE OF EXAMINATION: 05/02/2023. COMPARISON: None available. INDICATION: Hematuria with left flank pain. PROCEDURE: Axial CT of the abdomen and pelvis was performed with sagittal and coronal reformatted i mages without contrast enhancement. The exam is limited because some types of pathology may not be ad equately demonstrated due to lack of contrast enhancement. CT dose lowering techniques were used, to include: automated exposure control, adjustment for patient size, and/or use of iterative reconstruct ion. FINDINGS: LOWER CHEST : The visualized lung bases are clear. There are no pleural or pericardial effusions. ABDOMEN: Liver and Biliary system: Normal. Adrenal glands: There is a 1.6 cm right adrenal nodule. There is a 1.3 cm left adrenal nodule. These are compatible with adrenal adenomas.. Kidneys and ureters: There are no renal stones or hydronephrosis. No ureteral stones are present.. Spleen: Normal. Pancreas: Normal. Gallbladder: Normal. Lymph nodes, Peritoneum and mesentery: There is no mesenteric or retroperitoneal lymphadenopathy. Gastrointestinal tract: There are no dilated loops of bowel or free intraperitoneal air. . The appe ndix is normal. Aorta/IVC: No aortic aneurysm.. IVC normal. Abdominal wall: Normal. PELVIS: Fluid: There is no free fluid in the pelvis. Lymph Nodes: There is no pelvic or inguinal lymphadenopathy.. Urinary bladder: Normal. BONES: There are no osseous destructive lesions.. ADDITIONAL SIGNIFICANT FINDINGS: None. IMPRESSION: 1. No renal stones or hydronephrosis.. 2. No bowel obstruction or appendicitis. 3. Bilateral adrenal nodules compatible with adenomas.
== END | disposition home or self-care (01) ==
LOC: RADCTMAIN 08:47
PROVIDERS: ATTEND Family Medicine
DX: R31.9 Hematuria, unspecified (principal)
CPT/HCPCS: 74176

== ENCOUNTER 2023-05-06 07:05 | Emergency (ER) | payer MEDICAID ==
[2023-05-06] MEDS ORDERED: KETOROLAC 15 MG/ML 1 ML VIAL IVP STA ×2 (07:45→08:56)
[2023-05-06] MEDS ORDERED: SODIUM CHLORIDE 0.9% 500 ML 500 ML IV STA (07:45)
[2023-05-06] MEDS ORDERED: ONDANSETRON 4 MG/2 ML VIAL IVP STA (07:45)
[2023-05-06] MEDS ORDERED: SODIUM CHLORIDE 0.9% 1,000 ML IV STA (07:45)
[2023-05-06 07:48] VITALS: RESP 16
--- NOTE | 2023-05-06 08:08 | ED ---
Abdominal Pain HPI - General Chief Complaint: Abdominal Pain Stated Complaint: Back Pain Time Seen by Provider: 05/06/23 07:29 Source: patient, RN notes reviewed Mode of arrival: ambulatory Limitations: no limitations - History of Present Illness Initial Comments: 52-year-old female presents emergency Department with chief complaint of left sided flank pain. Patient states initially start some hematuria states the pain is getting worse. She did have CT renal any acute findings states pain is not worse at was. She still has noted hematuria. Patient had prior hysterectomy no other surgeries she states this pain is not similar normal back pain. Denies chest pain or shortness of breath. - Related Data Home Medications Medication Instructions Recorded Confirmed Acetaminophen Tab [Tylenol Tab] 650 mg PO Q6H PRN 09/21/17 10/01/18 Loratadine/Pseudoephedrine 1 each PO DAILY 09/23/18 10/01/18 [Loratadine-D 24Hr Tablet] Previous Rx's Medication Instructions Recorded HYDROcodone/APAP 5-325MG [[place] 2 tab PO Q6HR PRN 3 Days #20 tab 10/01/18 5-325] Ibuprofen [Motrin] 600 mg PO Q6HR PRN #30 tab 10/01/18 Fluconazole [Diflucan] 150 mg PO ONCE #2 tab 05/06/23 Nitrofurantoin Monohyd/M-Cryst 100 mg PO Q12HR #10 cap 05/06/23 [Macrobid] Allergies Allergy/AdvReac Type Severity Reaction Status Date / Time No Known Allergies Allergy Verified 10/01/18 07:33 Review of Systems ROS Statement: Those systems with pertinent positive or pertinent negative responses have been documented in the HPI. ROS Other: All systems not noted in ROS Statement are negative. Past Medical History Past Medical History: No Reported History, Neurologic Disorder Additional Past Medical History / Comment(s): HX MIGRAINES History of Any Multi-Drug Resistant Organisms: None Reported Past Surgical History: Breast Surgery, Hysterectomy, Uterine Ablation Additional Past Surgical History / Comment(s): RT BREAST BX. COLONOSCOPY. D & C Past Anesthesia/Blood Transfusion Reactions: No Reported Reaction Past Psychological History: Depression Smoking Status: Current every day smoker Past Alcohol Use History: Occasional Past Drug Use History: Marijuana - Past Family History Mother Family Medical History: COPD Additional Family Medical History / Comment(s): emphysema, carotids done. valve replacement. 3 stents. blood clots. General Exam Limitations: no limitations General appearance: alert, in no apparent distress Head exam: Present: atraumatic, normocephalic, normal inspection Eye exam: Present: normal appearance, PERRL, EOMI. Absent: scleral icterus, conjunctival injection, periorbital swelling ENT exam: Present: normal exam, normal oropharynx, mucous membranes moist Neck exam: Present: normal inspection, full ROM. Absent: tenderness, meningismus, lymphadenopathy Respiratory exam: Present: normal lung sounds bilaterally. Absent: respiratory distress, wheezes, rales, rhonchi, stridor Cardiovascular Exam: Present: regular rate, normal rhythm, normal heart sounds. Absent: systolic murmur, diastolic murmur, rubs, gallop, clicks GI/Abdominal exam: Present: soft, tenderness, normal bowel sounds. Absent: distended, guarding, rebound, rigid Back exam: Present: CVA tenderness (L). Absent: CVA tenderness (R) Neurological exam: Present: alert Skin exam: Present: warm, dry, intact, normal color. Absent: rash Course Vital Signs 05/06/23 05/06/23 05/06/23 07:21 09:18 10:10 Temperature 98.4 F 98.1 F 98 F Pulse Rate 71 70 72 Respiratory 16 16 16 Rate Blood Pressure 135/90 125/75 124/76 O2 Sat by Pulse 100 100 100 Oximetry Medical Decision Making - Medical Decision Making Was pt. sent in by a medical professional or institution (, PA, PROFESSOR OF LAW, urgent care, hospital, or retirement...) When possible be specific @ -none Did you speak to anyone other than the patient for history (EMS, parent, family, police, friend...)? What history was obtained from this source @ -No Did you review nursing and triage notes (agree or disagree)? Why? @ -I reviewed and agree with nursing and triage notes Were old charts reviewed (outside hosp., previous admission, EMS record, old EKG, old radiological studies, urgent care reports/EKG's, retirement records)? Report findings @ -Reviewed prior laboratory studies, CT Differential Diagnosis (chest pain, altered mental status, abdominal pain women, abdominal pain men, vaginal bleeding, weakness, fever, dyspnea, syncope, headache, dizziness, GI bleed, back pain, seizure, CVA, palpatations, mental health, musculoskeletal)? @ -nDifferential Abdominal Pain Women: Appendicitis, Cholecystitis, diverticulosis, ischemic bowel, pancreatitis, hepatitis, UTI, gastroenteritis, AAA, incarcerated hernia, bowel obstruction, constipation, inflammatory bowel, hepatitis, peptic ulcer disease, splenic infarction, perforated viscus, vulvitis, ovarian torsion, PID, kidney stone, placenta abruption, this is not meant to be an all-inclusive listable EKG interpreted by me (3pts min.). @ -[None X-rays interpreted by me (1pt min.). @ -None done CT interpreted by me (1pt min.). @ -None done U/S interpreted by me (1pt. min.). @ -US KIDNEY AND BLADDER NO ACUTE PROCESS What testing was considered but not performed or refused? (CT, X-rays, U/S, labs)? Why? @ -None What meds were considered but not given or refused? Why? @ -None Did you discuss the management of the patient with other professionals (professionals i.e. , PA, PROFESSOR OF LAW, lab, RT, psych nurse, social work case manager, ground worker, teacher, sales officer, family preservation caseworker)? Give summary @ -No Was smoking cessation discussed for >3mins.? @ -No Was critical care preformed (if so, how long)? @ -No Were there social determinants of health that impacted care today? How? (Homelessness, low income, unemployed, alcoholism, drug addiction, transportation, low edu. Level, literacy, decrease access to med. care, assisted, rehab)? @ -No Was there de-escalation of care discussed even if they declined (Discuss DNR or withdrawal of care, Hospice)? DNR status @ -No What co-morbidities impacted this encounter? (DM, HTN, Smoking, COPD, CAD, Cancer, CVA, ARF, Chemo, Hep., AIDS, mental health diagnosis, sleep apnea, morbid obesity)? @ -None Was patient admitted / discharged? Hospital course, mention meds given and route, prescriptions, significant lab abnormalities, going to OR and other pertinent info. @ -Discharge hematuria has resolved, did review prior laboratory studies, urinalysis, CT and ultrasound. Patient does have mild amount of bacteria and some discomfort be treated pending urine culture Undiagnosed new problem with uncertain prognosis? @ -No Drug Therapy requiring intensive monitoring for toxicity (Heparin, Nitro, Insulin, Cardizem)? @ -No Were any procedures done? @ -No Diagnosis/symptom? @ -Flank pain Acute, or Chronic, or Acute on Chronic? @ -Acute Uncomplicated (without systemic symptoms) or Complicated (systemic symptoms)? @ -Uncomplicated Side effects of treatment? @ -No Exacerbation, Progression, or Severe Exacerbation? @ -No Poses a threat to life or bodily function? How? (Chest pain, [place], [place], pneumonia, PE, COPD, DKA, ARF, appy, cholecystitis, CVA, Diverticulitis, Homicidal, [place] icidal, threat to staff... and all critical care pts) @ -No - Lab Data Result diagrams: 05/06/23 07:52 05/06/23 07:52 Lab Results 05/06/23 05/06/23 05/06/23 Range/Units 07:52 07:52 07:52 WBC 16.4 H (3.8-10.6) k/uL RBC 4.90 (3.80-5.40) m/uL Hgb 14.9 (11.4-16.0) gm/dL Hct 45.2 (34.0-46.0) % MCV 92.3 (80.0-100.0) fL MCH 30.3 (25.0-35.0) pg MCHC 32.9 (31.0-37.0) g/dL RDW 13.8 (11.5-15.5) % Plt Count 452 H (150-450) k/uL MPV 8.1 Neutrophils % 70 % Lymphocytes % 18 % Monocytes % 6 % Eosinophils % 3 % Basophils % 1 % Neutrophils # 11.5 H (1.3-7.7) k/uL Lymphocytes # 3.0 (1.0-4.8) k/uL Monocytes # 1.0 (0-1.0) k/uL Eosinophils # 0.5 (0-0.7) k/uL Basophils # 0.1 (0-0.2) k/uL Sodium 137 (137-145) mmol/L Potassium 4.1 (3.5-5.1) mmol/L Chloride 104 (98-107) mmol/L Carbon Dioxide 24 (22-30) mmol/L Anion Gap 9 mmol/L BUN 6 L (7-17) mg/dL Creatinine 0.54 (0.52-1.04) mg/dL Est GFR (CKD-EPI)AfAm >90 (>60 ml/min/1.73 sqM) Est GFR (CKD-EPI)NonAf >90 (>60 ml/min/1.73 sqM) Glucose 100 H (74-99) mg/dL Calcium 9.8 (8.4-10.2) mg/dL Total Bilirubin 0.9 (0.2-1.3) mg/dL AST 27 (14-36) U/L ALT 19 (4-34) U/L Alkaline Phosphatase 79 (38-126) U/L Total Protein 7.5 (6.3-8.2) g/dL Albumin 4.4 (3.5-5.0) g/dL Lipase 108 (23-300) U/L Urine Color Yellow Urine Appearance Clear (Clear) Urine pH 5.5 (5.0-8.0) Ur Specific [place] 1.020 (1.001-1.035) Urine Protein Negative (Negative) Urine Glucose (UA) Negative (Negative) Urine Ketones Negative (Negative) Urine Blood Negative (Negative) Urine Nitrite Negative (Negative) Urine Bilirubin Negative (Negative) Urine Urobilinogen <2.0 (<2.0) mg/dL Ur Leukocyte Esterase Small (Negative) Urine WBC 7 H (0-5) /hpf Ur Squamous Epith Cells 3 (0-4) /hpf Urine Bacteria Rare H (None) /hpf Urine Mucus Rare H (None) /hpf Disposition Clinical Impression: Flank pain Disposition: HOME SELF-CARE Condition: Stable Instructions (If sedation given, give patient instructions): Flank Pain (ED) Additional Instructions: Please return to the Emergency Department if symptoms worsen or any other concerns. Prescriptions: Fluconazole [Diflucan] 150 mg PO ONCE #2 tab Nitrofurantoin Monohyd/M-Cryst [Macrobid] 100 mg PO Q12HR #10 cap Is patient prescribed a controlled substance at d/c from ED?: No Referrals: Melo Templeton MD [Primary Care Provider] - 1-2 days Time of Disposition: 09:50
[2023-05-06 08:11] LABS: Basophils # (A) 0.1 k/uL (0-0.2); Basophils % (A) 1 %; Eosinophils # (A) 0.5 k/uL (0-0.7); Eosinophils % (A) 3 %; HCT 45.2 % (34.0-46.0); HGB 14.9 gm/dL (11.4-16.0); Lymphocytes % (A) 18 %; MCH 30.3 pg (25.0-35.0); MCHC 32.9 g/dL (31.0-37.0); MCV 92.3 fL (80.0-100.0); Mean Platelet Volume 8.1; Monocytes % (A) 6 %; Neutrophils # (A) 11.5 k/uL (1.3-7.7); Neutrophils % (A) 70 %; Platelet Count 452 k/uL (150-450); RDW 13.8 % (11.5-15.5); WBC 16.4 k/uL (3.8-10.6)
[2023-05-06 08:18] LABS: ALT 19 U/L (4-34); AST 27 U/L (14-36); African American GFR (CKD) >90 (>60 ml/min/1.73 sqM); Albumin 4.4 g/dL (3.5-5.0); Alkaline Phosphatase 79 U/L (38-126); Anion Gap 9 mmol/L; Blood Urea Nitrogen 6 mg/dL (7-17); Calcium 9.8 mg/dL (8.4-10.2); Carbon Dioxide 24 mmol/L (22-30); Chloride 104 mmol/L (98-107); Glucose 100 mg/dL (74-99); Lipase 108 U/L (23-300); Non-African American GFR(CKD) >90 (>60 ml/min/1.73 sqM); Potassium 4.1 mmol/L (3.5-5.1); Sodium 137 mmol/L (137-145); Total Bilirubin 0.9 mg/dL (0.2-1.3); Total Protein 7.5 g/dL (6.3-8.2)
--- NOTE | 2023-05-06 08:34 | US ---
EXAMINATION TYPE: US kidneys/renal and bladder DATE OF EXAM: 05/06/2023 COMPARISON: NONE CLINICAL INDICATION: Female, 52 years old with history of left flank pain x 1 week with nausea. Gross hematuria - resolved. EXAM MEASUREMENTS: Right Kidney: 10.4 x 4.6 x 6.0 cm Left Kidney: 9.1 x 5.5 x 5.1 cm Post Void Residual Volume: N/A mL Right Kidney: No hydronephrosis or masses seen Left Kidney: No hydronephrosis or masses seen Bladder: Not fully distended - WNL as vis Bilateral Jets seen: Yes Normal Post Void Residual: NA Due to overlying artifact assessment for mass is limited. No obvious hydronephrosis or nephrolithiasi s. Renal cortex is normal thickness. Cortical medullary junction maintained. IMPRESSION: 1. No hydronephrosis or nephrolithiasis. 2. Limited assessment of the bladder due to incomplete distention.
[2023-05-06] MEDS ORDERED: ACETAMINOPHEN TAB 325 MG TAB PO STA (08:56)
[2023-05-06 09:31] LABS: Bacteria,Urine Rare /hpf; Mucus,Urine Rare /hpf; Squamous Epithelial Cell,Urine 3 /hpf (0-4); WBC,Urine 7 /hpf (0-5)
[2023-05-06 09:32] LABS: Appearance,Urine Clear (Clear); Color,Urine Yellow; PH, Urine 5.5 (5.0-8.0)
[2023-05-06 09:33] LABS: Bilirubin,Urine Negative (Negative); Glucose,Urine (UA) Negative (Negative); Ketones,Urine Negative (Negative); Protein,Urine Negative (Negative)
[2023-05-06 09:34] LABS: Blood,Urine Negative (Negative); Leukocyte Esterase,Urine Small (Negative); Nitrite,Urine Negative (Negative); Urobilinogen,Urine <2.0 mg/dL (<2.0)
[2023-05-06 10:14] VITALS: BP 124/76; PULSE 72; TEMP 98
== END 2023-05-06 10:11 | disposition home or self-care (01) ==
LOC: EC 07:05
DX: R10.32 Left lower quadrant pain (principal); F32.A Depression, unspecified; F17.200 Nicotine dependence, unspecified, uncomplicated; F12.90 Cannabis use, unspecified, uncomplicated; Z79.899 Other long term (current) drug therapy
CPT/HCPCS: 36415; 80053; 83690; 85025; 81001; 87086; 76770; 99285; 96374; 96376; 96375; 96361; J2405; J1885

== ENCOUNTER 2023-05-08 10:20 | Emergency (ER) | payer MEDICAID ==
[2023-05-08 11:02] VITALS: BP 138/89; PULSE 68; RESP 18; TEMP 98.5
--- NOTE | 2023-05-08 11:17 | ED ---
General Adult HPI - General Chief complaint: Recheck/Abnormal Lab/Rx Stated complaint: left hip pain Time Seen by Provider: 05/08/23 10:32 Source: patient Mode of arrival: ambulatory Limitations: no limitations - History of Present Illness Initial comments: 52-year-old female presenting to the ED with a chief complaint of hip pain. She states that this has been ongoing for the past week and a half. Patient denies any trauma. She states over the first few days had hematuria with this, no dysuria, no urgency, no frequency. Saw her PCP who ordered a CAT scan of the abdomen and pelvis on 05/02/23 that revealed no acute process. Patient states ongoing pain and was seen again at this facility 2 days ago. At that time had ultrasound of the abdomen and renal which was unremarkable. Also had a urine culture performed. This was reviewed and this showed no growth. Today, patient notes continued pain. Reports that hematuria has resolved and is not having any urinary symptoms. Patient states pain of her hip seems to wrap to the front of her abdomen and to her lower back. No other symptoms. No chest pain or shortness of breath. No changes in bowel habits. No fever. No other complaints. - Related Data Home Medications Medication Instructions Recorded Confirmed Acetaminophen Tab [Tylenol Tab] 650 mg PO Q6H PRN 09/21/17 10/01/18 Loratadine/Pseudoephedrine 1 each PO DAILY 09/23/18 10/01/18 [Loratadine-D 24Hr Tablet] Previous Rx's Medication Instructions Recorded HYDROcodone/APAP 5-325MG [Revillo 2 tab PO Q6HR PRN 3 Days #20 tab 10/01/18 5-325] Ibuprofen [Motrin] 600 mg PO Q6HR PRN #30 tab 10/01/18 Fluconazole [Diflucan] 150 mg PO ONCE #2 tab 05/06/23 Nitrofurantoin Monohyd/M-Cryst 100 mg PO Q12HR #10 cap 05/06/23 [Macrobid] Allergies Allergy/AdvReac Type Severity Reaction Status Date / Time No Known Allergies Allergy Verified 05/08/23 10:29 Review of Systems ROS Statement: Those systems with pertinent positive or pertinent negative responses have been documented in the HPI. ROS Other: All systems not noted in ROS Statement are negative. Past Medical History Past Medical History: No Reported History, Neurologic Disorder Additional Past Medical History / Comment(s): HX MIGRAINES History of Any Multi-Drug Resistant Organisms: None Reported Past Surgical History: Breast Surgery, Hysterectomy, Uterine Ablation Additional Past Surgical History / Comment(s): RT BREAST BX. COLONOSCOPY. D & C Past Anesthesia/Blood Transfusion Reactions: No Reported Reaction Past Psychological History: Depression Smoking Status: Current every day smoker Past Alcohol Use History: Occasional Past Drug Use History: Marijuana - Past Family History Mother Family Medical History: COPD Additional Family Medical History / Comment(s): emphysema, carotids done. valve replacement. 3 stents. blood clots. General Exam Limitations: no limitations General appearance: alert, in no apparent distress Eye exam: Present: normal appearance Neck exam: Present: normal inspection Respiratory exam: Present: normal lung sounds bilaterally Cardiovascular Exam: Present: regular rate, normal rhythm GI/Abdominal exam: Present: soft (No tenderness to palpation. No rebound guarding or rigidity.), normal bowel sounds Extremities exam: Present: other (Strength and sensation equal and intact of bilateral lower extremities. DP/PT pulses 2+. Full active range of motion of the left lower extremity. Producible tenderness to palpation over the left hip.) Back exam: Present: normal inspection Neurological exam: Present: alert, oriented X3 Skin exam: Present: warm, dry Course Vital Signs 05/08/23 05/08/23 10:29 10:55 Temperature 98.7 F 98.5 F Pulse Rate 73 68 Respiratory 16 18 Rate Blood Pressure 135/87 138/89 O2 Sat by Pulse 99 98 Oximetry Medical Decision Making - Medical Decision Making Was pt. sent in by a medical professional or institution (, PA, GAS METER INSTALLER HELPER, urgent care, hospital, or shelter...) When possible be specific @ -No Did you speak to anyone other than the patient for history (EMS, parent, family, police, friend...)? What history was obtained from this source @ -No Did you review nursing and triage notes (agree or disagree)? Why? @ -I reviewed and agree with nursing and triage notes Were old charts reviewed (outside hosp., previous admission, EMS record, old EKG, old radiological studies, urgent care reports/EKG's, shelter records)? Report findings @ -Prior visit and CAT scan reviewed. For further details please see HPI. Differential Diagnosis (chest pain, altered mental status, abdominal pain women, abdominal pain men, vaginal bleeding, weakness, fever, dyspnea, syncope, headache, dizziness, GI bleed, back pain, seizure, CVA, palpatations, mental health, musculoskeletal)? @ -Differential Musculoskeletal Muscular strain, contusion, ligament sprain, fracture, arthritis, septic arthritis, bursitis, cellulitis, muscle spasm, nerve compression, DVT, arterial occlusion, herpes zoster, electrolyte abnormality, tumor.... This is not meant to be in all inclusive list EKG interpreted by me (3pts min.). @ -None X-rays interpreted by me (1pt min.). @ -None done CT interpreted by me (1pt min.). @ -None done U/S interpreted by me (1pt. min.). @ -None done What testing was considered but not performed or refused? (CT, X-rays, U/S, labs)? Why? @ -Other imaging was considered however patient did have a CAT scan on the first which revealed no acute process. Patient reports no new symptoms or other areas of pain therefore imaging at this time not performed. What meds were considered but not given or refused? Why? @ -None Did you discuss the management of the patient with other professionals (professionals i.e. , PA, GAS METER INSTALLER HELPER, lab, RT, psych nurse, neonatal social worker, chemical engineering intern, teacher, property portfolio officer, case managers)? Give summary @ -No Was smoking cessation discussed for >3mins.? @ -No Was critical care preformed (if so, how long)? @ -No Were there social determinants of health that impacted care today? How? (Homelessness, low income, unemployed, alcoholism, drug addiction, transportation, low edu. Level, literacy, decrease access to med. care, half-way, rehab)? @ -No Was there de-escalation of care discussed even if they declined (Discuss DNR or withdrawal of care, Hospice)? DNR status @ -No What co-morbidities impacted this encounter? (DM, HTN, Smoking, COPD, CAD, Cancer, CVA, ARF, Chemo, Hep., AIDS, mental health diagnosis, sleep apnea, morbid obesity)? @ -None Was patient admitted / discharged? Hospital course, mention meds given and route, prescriptions, significant lab abnormalities, going to OR and other pertinent info. @ -Discharge 52-year-old female presenting to the ED with complaints of ongoing left hip pain for the past week and a half. Recent imaging including CAT scan of abdomen and pelvis and ultrasound of the abdomen/renal reviewed revealing no acute process. Urine culture performed on the fifth reveals no growth. Exam shows full active range of motion, strength and sensation intact, with reproducible tenderness to palpation of the left hip. Symptoms likely muscular skeletal in nature. Discharged home in stable condition and advised to follow up with her primary care provider. Discussed return precautions with patient who verbalizes agreement. Undiagnosed new problem with uncertain prognosis? @ -No Drug Therapy requiring intensive monitoring for toxicity (Heparin, Nitro, Insulin, Cardizem)? @ -No Were any procedures done? @ -No Diagnosis/symptom? @ -Left hip pain Acute, or Chronic, or Acute on Chronic? @ -Acute Uncomplicated (without systemic symptoms) or Complicated (systemic symptoms)? @ -Uncomplicated Side effects of treatment? @ -No Exacerbation, Progression, or Severe Exacerbation? @ -No Poses a threat to life or bodily function? How? (Chest pain, [place], [place], pneumonia, PE, COPD, DKA, ARF, appy, cholecystitis, CVA, Diverticulitis, Homicidal, Suicidal, threat to staff... and all critical care pts) @ -No Disposition Clinical Impression: Left hip pain Disposition: HOME SELF-CARE Condition: Good Instructions (If sedation given, give patient instructions): Hip Pain (ED) Additional Instructions: Please return to the Emergency Department if symptoms worsen or any other concerns. Please follow-up with your primary care provider. Is patient prescribed a controlled substance at d/c from ED?: No Referrals: Melo Templeton MD [Primary Care Provider] - 1-2 days Time of Disposition: 11:25
[2023-05-08] MEDS ORDERED: KETOROLAC 15 MG/ML 1 ML VIAL IM STA (11:22)
[2023-05-08] MEDS ORDERED: CYCLOBENZAPRINE 10MG STARTER 3 TAB BTL PO STA (11:23)
[2023-05-08] MEDS ORDERED: LIDOCAINE 5% PATCH TOPICAL ONE (11:31)
== END 2023-05-08 11:41 | disposition home or self-care (01) ==
LOC: EC 10:20
DX: M25.552 Pain in left hip (principal); F17.200 Nicotine dependence, unspecified, uncomplicated; F12.90 Cannabis use, unspecified, uncomplicated; Z86.59 Personal history of other mental and behavioral disorders
CPT/HCPCS: 99284; 96372; J1885

== ENCOUNTER → 2023-05-16 | Outpatient (CLI) | payer MEDICAID ==
[2023-05-17 01:58] LABS: ALT 15 U/L (8-44)
[2023-05-17 01:59] LABS: AST 13 U/L (13-35)
== END | disposition home or self-care (01) ==
LOC: LABWHC1 16:07
PROVIDERS: ATTEND Podiatrist Foot & Ankle Surgery
DX: K74.60 Unspecified cirrhosis of liver (principal)
CPT/HCPCS: 36415; 84450; 84460

== ENCOUNTER 2023-05-23 09:00 | Day surgery (SDC) | payer MEDICAID ==
[2023-05-22 09:14] VITALS: BMI 32.2
[~2023-05-23 09:00] MED LIST changes: -DEXAMETHASONE SOD PHOSPHATE 10 MG/ML 1 ML VIAL IV ONE; +LACTATED RINGERS 1,000 ML IV SCH; -LIDOCAINE 1% 20 ML VIAL (10MG/ML) FOR IV START INTRADERMA PRN; -ONDANSETRON 4 MG/2 ML VIAL IVP ONE; -SCOPOLAMINE 1.5MG/72HR PATCH TRANSDERM ONE; -ceFAZolin IN SWFI 2 GM/20 ML SYRINGE IVP ONE
[2023-05-23 09:40] VITALS: RESP 16; TEMP 97.5
[2023-05-23] MEDS ORDERED: PROPOFOL 10 MG/ML 20 ML VIAL IV ONE (10:16)
--- NOTE | 2023-05-23 10:43 | P.PCN ---
Date of Procedure: 05/23/23 Procedure(s) Performed: BRIEF HISTORY: Patient is a 52-year-old pleasant white female scheduled for an elective colonoscopy as a part of screening for colon cancer and family history of colon cancer. Her father was diagnosed with colon cancer at age 70. Her last colonoscopy was 6 years ago. PROCEDURE PERFORMED: Colonoscopy with snare polypectomy and Endo Clip placement. PREOPERATIVE DIAGNOSIS: Screening for colon cancer and family history of colon cancer. IV sedation per Anesthesia. PROCEDURE: After informed consent was obtained, the patient, was brought into the endoscopy unit. IV sedation was administered by Anesthesia under continuous monitoring. Digital rectal examination was normal. Initially the Olympus CF-160 flexible video colonoscope was then inserted in the rectum, gradually advanced into the cecum without any difficulty. Careful examination was performed as the scope was gradually being withdrawn. Ileocecal valve and the appendiceal orifice were visualized and appeared normal. Prep was excellent. There was a large broad-based polyp almost involving the ileocecal valve extending into the cecum and ascending colon measuring at least 45 cm which was partially removed by snare polypectomy and almost 50% the polyp was removed. Some of the polyp was extending inferior to the ileocecal valve which could not be removed. Following polypectomy Endo Clip was placed. Rest of the ascending colon, transverse colon, descending colon, sigmoid colon, and rectum appeared normal. Retroflexion was performed in the rectum and no lesions were seen. The patient tolerated the procedure well. IMPRESSION: Large 4-5 cm broad-based polyp involving the ileocecal valve extending into the cecum as well as into the ascending colon status post piecemeal snare polypectomy and almost 50% the polyp was removed followed by Endo Clip placement She rest of the colon appeared normal RECOMMENDATIONS: Findings of this examination were discussed with the patient as well as a family. She was advised to follow with the biopsy results and she'll be seen in office in one week. Based the biopsy results and consider either repeat colonoscopy in one month or prep in HER-2 and advance endoscopists at [facility] for complete polypectomy
[2023-05-23] MEDS ORDERED: ACETAMINOPHEN TAB 500 MG TAB ONE (11:10)
[2023-05-23] MEDS ORDERED: ACETAMINOPHEN TAB 500 MG TAB PO ONE (11:11)
[2023-05-23] MEDS ORDERED: ONDANSETRON ODT 4 MG TAB PO ONE (12:10)
[2023-05-23 12:13] VITALS: BP 133/74; PULSE 82
== END 2023-05-23 12:11 | disposition home or self-care (01) ==
LOC: ORWHC2ENDO 09:00
PROVIDERS: ATTEND Internal Medicine Gastroenterology
DX: Z12.11 Encounter for screening for malignant neoplasm of colon (principal); D12.0 Benign neoplasm of cecum; F17.210 Nicotine dependence, cigarettes, uncomplicated; E78.5 Hyperlipidemia, unspecified; F32.A Depression, unspecified; Z80.0 Family history of malignant neoplasm of digestive organs; Z79.899 Other long term (current) drug therapy; Z98.890 Other specified postprocedural states
CPT/HCPCS: 88305; 45382; 45385; J2704; 45380

== ENCOUNTER → 2023-06-19 | Outpatient (CLI) | payer MEDICAID ==
--- NOTE | 2023-06-20 20:04 | MM ---
Reason for Exam: Screening (asymptomatic). Last mammogram was performed 1 year(s) and 1 month(s) ago. Patient History: Menarche at age 15. Patient has no children. Left ovary removed at age 47. Hysterectomy at age 47. Postmenopausal. 2012, Benign Excisional Biopsy on the right side. Paternal grandmother had breast cancer, age 81. Paternal aunt had breast cancer, age 52. Risk Values: Bree 5 year model risk: 1.3%. NCI Lifetime model risk: 10.3%. Prior Study Comparison: 06/25/2019 Bilateral Screening Mammogram, [facility]. 01/30/2021 Bilateral Screening Mammogram, [facility]. 05/22/2022 Bilateral MG 3D screening mammo w/cad, [facility]. Tissue Density: The breast tissue is almost entirely fat. Findings: Analyzed By CAD. Microclip right breast. Scattered benign round calcifications on both sides. There is no suspicious group of microcalcifications or new suspicious mass in either breast. Overall Assessment: Benign, BI-RAD 2 Management: Screening Mammogram of both breasts in 1 year. Further clinical management of intermittent breast achiness reported by the patient. Patient should continue monthly self-breast exams. A clinical breast exam by your physician is recommended on an annual basis. This exam should not preclude additional follow-up of suspicious palpable abnormalities. Note on Bree scores and lifetime risk: 1. A Bree score greater than 3% is considered moderate risk. If this is the case, consider specialist referral to assess eligibility for a risk reducing agent. 2. If overall lifetime risk for the development of breast cancer is 20% or higher, the patient may qualify for future screening with alternating mammogram and breast MRI. Electronically signed and approved by: Sally Arreola M.D. Radiologist
== END | disposition home or self-care (01) ==
LOC: RADMAMWWP 09:12
PROVIDERS: ATTEND Family Medicine
DX: Z12.31 Encounter for screening mammogram for malignant neoplasm of breast (principal); Z80.3 Family history of malignant neoplasm of breast; Z78.0 Asymptomatic menopausal state
CPT/HCPCS: 77063; 77067

== ENCOUNTER → 2023-12-11 | Outpatient (CLI) | payer MEDICAID ==
[2023-12-11 15:08] LABS: HCT 44.4 % (37.2-46.3); MCH 29.2 pg (27.0-32.0); MCHC 31.5 g/dL (32.0-37.0); MCV 92.5 FL (80.0-97.0); Mean Platelet Volume 9.9 FL (9.5-12.2); NRBC Per 100 WBC 0 X 10*3/uL (0.00-0.01); Platelet Count 491 X 10*3/uL (140-440); RDW 13.8 % (11.5-14.5); WBC 14.07 X 10*3/uL (4.50-10.00)
[2023-12-11 15:38] LABS: ALT 17 U/L (8-44); AST 22 U/L (13-35); Albumin 4.1 g/dL (3.8-4.9); Albumin/Globulin Ratio 1.37 Ratio (1.60-3.17); Alkaline Phosphatase 107 U/L (41-126); BUN/Creat Ratio 7.43 Ratio (12.00-20.00); Blood Urea Nitrogen 5.2 mg/dL (9.0-27.0); Calcium 9.7 mg/dL (8.7-10.3); Carbon Dioxide 22.1 mmol/L (21.6-31.8); Chloride 101 mmol/L (96-109); Chol/HDL Ratio 4.15 Ratio; Glucose 126 mg/dL (70-110); LDL Cholesterol,Calculated 120.6 mg/dL (0.0-131.0); Potassium 4.5 mmol/L (3.5-5.5); Sodium 137 mmol/L (135-145); Total Bilirubin 0.7 mg/dL (0.3-1.2); Total Protein 7.1 g/dL (6.2-8.2)
[2023-12-11 16:57] LABS: Gliadin AB IgA, Deaminated Negative (Negative); Gliadin AB IgG, Deaminated Negative (Negative); Gliadin AB IgG, Unit <0.4 U/mL
== END | disposition home or self-care (01) ==
LOC: LABWHC1 11:12
PROVIDERS: ATTEND Internal Medicine Gastroenterology
DX: K52.9 Noninfective gastroenteritis and colitis, unspecified (principal); E78.5 Hyperlipidemia, unspecified; R73.01 Impaired fasting glucose
CPT/HCPCS: 36415; 80053; 80061; 83036; 83516; 84443; 85027

== ENCOUNTER 2023-12-31 03:06 | Emergency (ER) | payer MEDICAID ==
[2023-12-31 03:12] VITALS: TEMP 97.5
[2023-12-31 04:02] LABS: Basophils # (A) 0.1 k/uL (0-0.2); Basophils % (A) 1 %; Eosinophils # (A) 0.6 k/uL (0-0.7); Eosinophils % (A) 4 %; HGB 14.4 gm/dL (11.4-16.0); Lymphocytes # (A) 3.8 k/uL (1.0-4.8); Lymphocytes % (A) 24 %; MCHC 32.9 g/dL (31.0-37.0); MCV 91.3 fL (80.0-100.0); Mean Platelet Volume 7.4; Monocytes # (A) 0.8 k/uL (0-1.0); Monocytes % (A) 5 %; Neutrophils # (A) 10.3 k/uL (1.3-7.7); Neutrophils % (A) 65 %; Platelet Count 394 k/uL (150-450); RBC 4.81 m/uL (3.80-5.40); WBC 15.8 k/uL (3.8-10.6)
[2023-12-31 04:12] LABS: INR 0.9 (<1.2); Partial Thromboplastin Time 23.7 sec (22.0-30.0); Prothrombin Time 9.8 sec (10.0-12.5)
[2023-12-31 04:13] LABS: ALT 16 U/L (4-34); AST 29 U/L (14-36); African American GFR (CKD) >90 (>60 ml/min/1.73 sqM); Albumin 4.2 g/dL (3.5-5.0); Alkaline Phosphatase 101 U/L (38-126); Anion Gap 6 mmol/L; Blood Urea Nitrogen 8 mg/dL (7-17); Calcium 9.8 mg/dL (8.4-10.2); Carbon Dioxide 21 mmol/L (22-30); Chloride 107 mmol/L (98-107); Glucose 124 mg/dL (74-99); Magnesium 1.8 mg/dL (1.6-2.3); Non-African American GFR(CKD) >90 (>60 ml/min/1.73 sqM); Potassium 4.7 mmol/L (3.5-5.1); Sodium 134 mmol/L (137-145); Total Bilirubin 0.5 mg/dL (0.2-1.3); Total Protein 7.1 g/dL (6.3-8.2)
--- NOTE | 2023-12-31 04:41 | XR ---
EXAM: XR Chest, 2 Views CLINICAL HISTORY: ITS.REASON XR Reason: Chest Pain TECHNIQUE: Frontal and lateral views of the chest. COMPARISON: None FINDINGS: Hardware: None. Lungs/pleura: Normal. No focal consolidation. No pleural effusion or pneumothorax. Heart/mediastinum: Normal. No cardiomegaly. Soft tissues: Unremarkable. Bones: No acute fracture. Upper abdomen: Normal. IMPRESSION: No acute disease identified.
--- NOTE | 2023-12-31 04:51 | ED ---
Chest Pain HPI - General Source: patient Mode of arrival: ambulatory Limitations: no limitations - History of Present Illness MD Complaint: chest pain Onset/Timin -: hour(s) Onset: awoke with symptoms Pain Location: substernal, epigastric Pain Radiation: back Severity: severe Quality: other (Squeezing) Consistency: now resolved (Partially) Worsens With: nothing Anginal Symptoms: nausea Treatments Prior to Arrival: none <Darell Jara - Last Filed: 12/31/23 04:49> <Antoine Mcmillan - Last Filed: 12/31/23 08:45> - General Chief Complaint: Chest Pain Stated Complaint: Chest Pain Time Seen by Provider: 12/31/23 04:28 - History of Present Illness Initial Comments: This patient is a 53-year-old woman who presents with complaint of epigastric and substernal pains that radiate to her back. Patient states that the symptoms woke her from sleep approximately 230. She has not noted worsening or relieving factors. (Darell Jara) - Related Data Home Medications Medication Instructions Recorded Confirmed Acetaminophen Tab [Tylenol Tab] 650 mg PO Q6H PRN 09/21/17 05/23/23 Loratadine/Pseudoephedrine 1 each PO DAILY 09/23/18 05/23/23 [Loratadine-D 24Hr Tablet] Atorvastatin [Lipitor] 10 mg PO DAILY 05/22/23 05/23/23 Escitalopram [Lexapro] 20 mg PO DAILY 05/22/23 05/23/23 Multivitamin/Iron/Folic Acid 1 tab PO DAILY 05/22/23 05/23/23 [Centrum Adults Tablet] Phytocillin 1 tab PO DAILY 05/22/23 05/23/23 Previous Rx's Medication Instructions Recorded Ibuprofen [Motrin] 600 mg PO Q6HR PRN #30 tab 10/01/18 Allergies Allergy/AdvReac Type Severity Reaction Status Date / Time No Known Allergies Allergy Verified 12/31/23 03:12 Review of Systems ROS Other: All systems not noted in ROS Statement are negative. Constitutional: Denies: fever, chills, weakness Respiratory: Denies: cough, dyspnea Cardiovascular: Reports: chest pain. Denies: palpitations, orthopnea, edema, syncope Gastrointestinal: Reports: abdominal pain, nausea. Denies: diarrhea, constipation, hematemesis, melena, hematochezia Genitourinary: Denies: dysuria, hematuria Musculoskeletal: Denies: back pain Skin: Denies: rash Neurological: Denies: headache, weakness, numbness <Darell Jara - Last Filed: 12/31/23 04:49> ROS Other: All systems not noted in ROS Statement are negative. <Antoine Mcmillan - Last Filed: 12/31/23 08:45> ROS Statement: Those systems with pertinent positive or pertinent negative responses have been documented in the HPI. Past Medical History Past Medical History: No Reported History, Neurologic Disorder Additional Past Medical History / Comment(s): HX MIGRAINES History of Any Multi-Drug Resistant Organisms: None Reported Past Surgical History: Bowel Resection, Breast Surgery, Hysterectomy, Uterine Ablation Additional Past Surgical History / Comment(s): RT BREAST BX. COLONOSCOPY. D & C Past Anesthesia/Blood Transfusion Reactions: No Reported Reaction Additional Past Anesthesia/Blood Transfusion Reaction / Comment(s): no blood transfusion Past Psychological History: Depression Smoking Status: Current every day smoker - Past Family History Mother Family Medical History: Cancer, COPD Additional Family Medical History / Comment(s): emphysema, carotids done. valve replacement. 3 stents. blood clots. lunng Father Family Medical History: Cancer Additional Family Medical History / Comment(s): colon <Darell Jara - Last Filed: 12/31/23 04:49> General Exam Limitations: no limitations General appearance: alert, in no apparent distress Head exam: Present: atraumatic, normocephalic Eye exam: Present: normal appearance. Absent: scleral icterus, conjunctival injection ENT exam: Present: normal oropharynx Neck exam: Present: normal inspection Respiratory exam: Present: normal lung sounds bilaterally. Absent: respiratory distress, wheezes, rales, rhonchi, stridor, accessory muscle use Cardiovascular Exam: Present: regular rate, normal rhythm, normal heart sounds. Absent: systolic murmur, diastolic murmur, rubs, gallop GI/Abdominal exam: Present: soft. Absent: distended, tenderness, guarding, rebound, rigid, mass Extremities exam: Present: normal inspection, normal capillary refill. Absent: pedal edema, calf tenderness Back exam: Present: normal inspection. Absent: CVA tenderness (R), CVA tenderness (L) Neurological exam: Present: alert Skin exam: Present: warm, dry, intact, normal color. Absent: rash <Darell Jara - Last Filed: 12/31/23 04:49> Course Vital Signs 12/31/23 12/31/23 12/31/23 03:09 04:29 06:58 Temperature 97.5 F L Pulse Rate 70 64 54 L Respiratory 22 16 16 Rate Blood Pressure 125/84 126/77 109/81 O2 Sat by Pulse 100 Oximetry 12/31/23 08:34 Temperature Pulse Rate 61 Respiratory 17 Rate Blood Pressure 110/85 O2 Sat by Pulse 97 Oximetry Chest Pain MDM <Antoine Mcmillan - Last Filed: 12/31/23 08:45> - [facility] Patient is a 53-year-old female signed out to me pending results of gallbladder ultrasound. Woke up this morning with what she described as chest pain however when she points to it is more epigastric abdominal pain and right upper quadrant abdominal pain. States she felt nauseous with that as well with some diaphoresis. Does have a history of colon resection. Denies any shortness of breath. Denies any new diarrhea or constipation. Patient was worked up by the previous provider for atypical ACS as well as abdominal labs. Workup so far remarkable for mild leukocytosis of 15 which is likely reactive to the nausea as well as pain. Cardiac workup negative per Dr. Jara, who interpreted EKG as well as undetectable troponin.. Right upper quadrant ultrasound gallbladder as interpreted by myself revealed gallstones present but no evidence of acute cholecystitis. On reevaluation, patient is feeling improved. We discussed results. She likely has biliary colic. Due to her recent surgery, I did offer CT imaging of the abdomen pelvis at this time but as patient is feeling improved and labs are relatively unremarkable and within baseline, I do not believe this is absolutely necessary at this time. Patient was in agreement and would like to defer any CT imaging. If she returns I did recommend she obtain CT imaging which she was in agreement with. Strict return precautions discussed. She was given starter packs of Tylenol 3 and Zofran for home. She was in agreement this plan. I instructed the patient to follow up with their PCP in the next 1-3 days. I explained that the patient should return to the emergency department if they experience any worsening symptoms. Strict return precautions were discussed with the patient. The patient expressed understanding of these instructions. I answered all questions that the patient had. The patient was discharged home in good condition with their prescriptions and follow up information. Diagnosis/symptom? @ -Biliary colic Acute, or Chronic, or Acute on Chronic? @ -Acute Uncomplicated (without systemic symptoms) or Complicated (systemic symptoms)? @ -Complicated Side effects of treatment? @ -None Exacerbation, Progression, or Severe Exacerbation] @ -No Poses a threat to life or bodily function? @ -Unlikely (Antoine Mcmillan) Disposition <Darell Jara - Last Filed: 12/31/23 04:49> Is patient prescribed a controlled substance at d/c from ED?: No Time of Disposition: 08:15 <Antoine Mcmillan - Last Filed: 12/31/23 08:45> Clinical Impression: Biliary colic Disposition: HOME SELF-CARE Condition: Fair Instructions (If sedation given, give patient instructions): Biliary Colic (ED) Additional Instructions: Return if worsening symptoms Referrals: Melo Templeton MD [Primary Care Provider] - 1-2 days Hloly Mena MD [STAFF PHYSICIAN] - 1-2 days
[2023-12-31] MEDS: ACETAMINOPHEN TAB 325 MG TAB PO STA (05:18)
--- NOTE | 2023-12-31 07:54 | US ---
EXAMINATION TYPE: US abdomen limited DATE OF EXAM: 12/31/2023 COMPARISON: NONE CLINICAL INDICATION: Female, 53 years old with history of attention RUQ; Pain started this am with na usea; Hx partial colon removal due to benign polyp TECHNIQUE: Multiple sonographic images of the right upper quadrant are obtained. FINDINGS: EXAM MEASUREMENTS: Liver Length: 17.2 cm Gallbladder Wall: 0.1 cm CBD: 0.3 cm Right Kidney: 11.5 x 4.3 x 5.6 cm PUBLIC AFFAIRS MANAGER NOTES: Pancreas: Tail obscured by overlying bowel gas Liver: wnl Gallbladder: ? Stones seen in supine Evidence for sonographic Mccollum's sign: No CBD: wnl Right Kidney: wnl IMPRESSION: Small layering stones are noted.
[2023-12-31] MEDS: ONDANSETRON 4 MG ODT STARTER PACK 2 TAB BTL PO STA (08:34)
[2023-12-31] MEDS: HYDROmorphone 0.5 MG/0.5 ML SYRINGE IVP STA (08:34)
[2023-12-31] MEDS: ACET/COD 300 MG/30 MG STARTER PACK 6 TAB BTL PO STA (08:34)
[2023-12-31 08:35] VITALS: BP 110/85; PULSE 61; RESP 17
== END 2023-12-31 08:39 | disposition home or self-care (01) ==
LOC: EC 03:06
DX: K80.50 Calculus of bile duct without cholangitis or cholecystitis without obstruction (principal); F17.200 Nicotine dependence, unspecified, uncomplicated
CPT/HCPCS: 36415; 93005; 80053; 83735; 84484; 85025; 85610; 85730; 71046; 76705; 99285; S0119

== ENCOUNTER 2024-02-06 06:17 | Day surgery (SDC) | payer MEDICAID ==
[~2024-02-06 06:17] MED LIST changes: -LACTATED RINGERS 1,000 ML IV SCH; +LIDOCAINE 1% (10MG/ML) FOR IV START INTRADERMA PRN
[2024-02-06] MEDS: ACETAMINOPHEN TAB 500 MG TAB PO PRN (06:52)
[2024-02-06] MEDS: LACTATED RINGERS 1,000 ML IV SCH (07:00)
[2024-02-06] MEDS ORDERED: fentaNYL (PF) 50 MCG/ML 2 ML AMP IV PRN (07:00)
[2024-02-06] MEDS ORDERED: MIDAZOLAM 2 MG/2 ML VIAL IV PRN (07:00)
[2024-02-06] MEDS: ONDANSETRON 4 MG/2 ML VIAL IVP ONE (07:01)
[2024-02-06] MEDS: DEXAMETHASONE SOD PHOSPHATE 4 MG/ML 1 ML VIAL IV ONE (07:01)
[2024-02-06] MEDS: FAMOTIDINE 20 MG/2 ML VIAL IV STA (07:03)
[2024-02-06] MEDS: HEPARIN SODIUM,PORCINE 5,000 UNIT/ML 1 ML VIAL SQ PRN (07:06)
[2024-02-06] MEDS: diphenhydrAMINE 50 MG/ML 1 ML VIAL IVP STA (07:09)
[2024-02-06] MEDS: IV FLUID CONTINUATION 1,000 ML IV ONE ×2 (07:11→11:31)
[2024-02-06] MEDS ORDERED: KETOROLAC 15 MG/ML 1 ML VIAL ONE (07:34)
[2024-02-06] MEDS ORDERED: ROCURONIUM 10 MG/ML (5 ML VIAL) IV ONE (07:34)
[2024-02-06] MEDS ORDERED: LIDOCAINE 1% INJ 10MG/ML (20 ML MDV) ONE (07:34)
[2024-02-06] MEDS ORDERED: HYDROmorphone (PF) 1 MG/ML ONE (07:34)
[2024-02-06] MEDS ORDERED: NEOSTIGMINE 1 MG/ML 10 ML VIAL ONE (07:34)
[2024-02-06] MEDS ORDERED: PROPOFOL 10 MG/ML 20 ML VIAL IV ONE (07:34)
[2024-02-06] MEDS ORDERED: MIDAZOLAM 2 MG/2 ML VIAL ONE (07:34)
[2024-02-06] MEDS ORDERED: LIDOCAINE 4% LTA KIT (4 ML) TOPICAL ONE (07:34)
[2024-02-06] MEDS ORDERED: SUCCINYLCHOLINE CHLORIDE 200 MG/10 ML VIAL IV ONE (07:34)
[2024-02-06] MEDS ORDERED: GLYCOPYRROLATE 0.2 MG/ML 2 ML VIAL ONE (07:34)
[2024-02-06] MEDS ORDERED: fentaNYL (PF) 50 MCG/ML 2 ML AMP ONE (07:34)
[2024-02-06] MEDS: BUPIVACAINE (PF) 0.25% 30 ML VIAL SQ ONE ×2 (08:00)
--- NOTE | 2024-02-06 08:51 | P.OP ---
Date of Procedure: 02/06/24 Procedure(s) Performed: PREOPERATIVE DIAGNOSIS: Chronic cholecystitis POSTOPERATIVE DIAGNOSIS: Same PROCEDURE: Laparoscopic cholecystectomy SURGEON: Rohith EBL: Minimal see anesthesia record ANESTHESIA: Gen. COMPLICATIONS: None OPERATIVE PROCEDURE: The patient was brought and placed on the operating room table in the supine position. The patient was placed under general anesthesia at that time. The abdomen was prepped and draped in the usual sterile fashion. A small vertical infraumbilical incision was made. The fascia was grasped with the Adi forceps. The fascia was retracted anteriorly. The Veress needle was advanced into the peritoneal cavity. The saline drop test was normal. Insufflation took place up to 15 mmHg. A 5 mm optical trocar was advanced and the peritoneal cavity. 2 additional 5 mm trochars were placed in the right upper quadrant under direct visualization. A 12 mm trocar was advanced into the epigastric incision site. The patient had some loose adhesions in the upper abdomen from the previous colectomy. These were lysed using sharp and blunt dissection. The gallbladder itself was moderately inflamed. The gallbladder was retracted superiorly and laterally. The peritoneum overlying the infundibulum was bluntly dissected. The patient's cystic duct was visualized. The junction between the cystic duct common and hepatic duct was identified. The critical view of safety was achieved after blunt dissection. The cystic duct was then divided after placement of 3 12 mm clips on the patient's side and one on the specimen side. The cystic artery was identified and clipped as well. A small vessel was seen along the gallbladder fossa and clipped as well. The gallbladder was then removed from the liver bed using electrocautery. The gallbladder was then removed from the epigastric trocar site with an Endo Catch bag. The gallbladder fossa was irrigated with saline. There was no evidence of any bleeding or biliary drainage seen. The fascia at the 12 millimeter site was closed using a Evin-Jamie 0 Vicryl stitch. The trochars were then removed. The skin at all 4 sites was closed using a 4-0 Monocryl stitch. Skin glue was utilized on the incision sites. At the end of this procedure the sponge and needle counts were correct. DISPOSITION: Stable to the recovery room
[2024-02-06] MEDS: IV FLUID CONTINUATION 300 ML IV ONE (08:57)
[2024-02-06 09:05] VITALS: TEMP 97.7
[2024-02-06 09:58] VITALS: RESP 16
[2024-02-06] MEDS: HYDROmorphone 0.5 MG/0.5 ML SYRINGE IVP PRN (10:08)
[2024-02-06 11:07] VITALS: PULSE 59
[2024-02-06 11:09] VITALS: BP 120/77
[2024-02-06] MEDS ORDERED: IBUPROFEN 600 MG TAB PO SCH (12:00)
[2024-02-06] MEDS ORDERED: ACETAMINOPHEN TAB 325 MG TAB PO SCH (15:00)
== END 2024-02-06 12:08 | disposition home or self-care (01) ==
LOC: OR 06:17
PROVIDERS: ATTEND Surgery
DX: K80.12 Calculus of gallbladder with acute and chronic cholecystitis without obstruction (principal); K58.9 Irritable bowel syndrome, unspecified; F17.200 Nicotine dependence, unspecified, uncomplicated; Z79.899 Other long term (current) drug therapy; Z86.010 Personal history of colon polyps; Z80.0 Family history of malignant neoplasm of digestive organs
CPT/HCPCS: 88304

== ENCOUNTER 2024-05-28 12:52 | Emergency (ER) | payer MEDICAID ==
[2024-05-28 13:46] VITALS: RESP 18
--- NOTE | 2024-05-28 13:49 | ED ---
URI HPI - General Source: patient, RN notes reviewed Mode of arrival: ambulatory Limitations: no limitations <Sydnee Costa - Last Filed: 05/28/24 16:29> <Evelia Rice - Last Filed: 05/28/24 18:49> - General Chief Complaint: Upper Respiratory Infection Stated Complaint: Headache,cough Time Seen by Provider: 05/28/24 13:47 - History of Present Illness Initial Comments: Patient is a 53-year-old female presented to ER for evaluation of cough, congestion and headache. Patient states since 05-19-2024 she has felt unwell. She also reports a pressure headache over her forehead. She does report a distant history of migraines but those have since resolved since having a hysterectomy. She also is reporting a cough and congestion. Patient was seen by PCP and started on methylprednisone and a Z-Familia. Her last dose of antibiotic was yesterday. She denies fevers, nausea, vomiting, chest pain, shortness of breath, abdominal pain, constipation/diarrhea or urinary complaints. Patient does report significant other is having similar symptoms. Denies any dizziness or lightheadedness. (Sydnee Costa) - Related Data Home Medications Medication Instructions Recorded Confirmed Acetaminophen Tab [Tylenol Tab] 650 mg PO Q6H PRN 09/21/17 02/06/24 Loratadine/Pseudoephedrine 1 each PO DAILY 09/23/18 02/06/24 [Loratadine-D 24Hr Tablet] Atorvastatin [Lipitor] 10 mg PO DAILY 05/22/23 02/06/24 Escitalopram [Lexapro] 20 mg PO HS 05/22/23 02/06/24 Diphenoxylate-Atropine 2 tab PO QID PRN 02/05/24 02/06/24 Lantaprost Eye Drops 1 drop BOTH EYES HS 02/05/24 02/06/24 oxyCODONE HCL [Roxicodone] 1 tab PO DIRECTED PRN 02/05/24 02/06/24 Previous Rx's Medication Instructions Recorded Ibuprofen [Motrin] 600 mg PO Q6HR PRN #30 tab 10/01/18 Allergies Allergy/AdvReac Type Severity Reaction Status Date / Time No Known Allergies Allergy Verified 02/06/24 06:33 Review of Systems ROS Other: All systems not noted in ROS Statement are negative. <Sydnee Cotsa - Last Filed: 05/28/24 16:29> ROS Other: All systems not noted in ROS Statement are negative. <DwayneEvelia - Last Filed: 05/28/24 18:49> ROS Statement: Those systems with pertinent positive or pertinent negative responses have been documented in the HPI. Past Medical History Past Medical History: Neurologic Disorder Additional Past Medical History / Comment(s): HX MIGRAINES mass to bowels History of Any Multi-Drug Resistant Organisms: None Reported Past Surgical History: Bowel Resection, Breast Surgery, Cholecystectomy, Hysterectomy, Uterine Ablation Additional Past Surgical History / Comment(s): RT BREAST BX. COLONOSCOPY. D & C Past Anesthesia/Blood Transfusion Reactions: No Reported Reaction Additional Past Anesthesia/Blood Transfusion Reaction / Comment(s): no blood transfusion Past Psychological History: Depression Smoking Status: Current every day smoker - Past Family History Mother Family Medical History: Cancer, COPD, Pulmonary Embolus Additional Family Medical History / Comment(s): emphysema, carotids done. valve replacement. 3 stents. blood clots. lung cancer Father Family Medical History: Cancer Additional Family Medical History / Comment(s): colon <Sydnee Costa - Last Filed: 05/28/24 16:29> General Exam Limitations: no limitations General appearance: alert, in no apparent distress Head exam: Present: atraumatic, normocephalic, normal inspection, other (No temporal artery tenderness) Eye exam: Present: normal appearance, PERRL, EOMI. Absent: scleral icterus, conjunctival injection, periorbital swelling Pupils: Present: normal accommodation ENT exam: Present: normal exam, normal oropharynx, mucous membranes moist, TM's normal bilaterally (No mastoid tenderness bilaterally) Respiratory exam: Present: normal lung sounds bilaterally. Absent: respiratory distress, wheezes, rales, rhonchi, stridor Cardiovascular Exam: Present: regular rate, normal rhythm, normal heart sounds. Absent: systolic murmur, diastolic murmur, rubs, gallop, clicks Neurological exam: Present: alert, oriented X3, CN II-XII intact Skin exam: Present: warm, dry, intact, normal color. Absent: rash <Sydnee Costa - Last Filed: 05/28/24 16:29> Course Vital Signs 05/28/24 05/28/24 05/28/24 13:12 13:43 17:13 Temperature 98.2 F 98.1 F Pulse Rate 89 81 Respiratory 20 18 18 Rate Blood Pressure 108/80 110/76 O2 Sat by Pulse 98 98 Oximetry Medical Decision Making - Lab Data Result diagrams: 05/28/24 13:53 05/28/24 13:53 - Radiology Data Radiology results: report reviewed, image reviewed <Sydnee Costa - Last Filed: 05/28/24 16:29> - Lab Data Result diagrams: 05/28/24 13:53 05/28/24 13:53 <Evelia Rice - Last Filed: 05/28/24 18:49> - Medical Decision Making Was pt. sent in by a medical professional or institution (, PA, [facility] [employer], urgent care, hospital, or [facility]...) When possible be specific @ -No Did you speak to anyone other than the patient for history (EMS, parent, family, police, friend...)? What history was obtained from this source @ -No Did you review nursing and triage notes (agree or disagree)? Why? @ -I reviewed and agree with nursing and triage notes Were old charts reviewed (outside hosp., previous admission, EMS record, old EKG, old radiological studies, urgent care reports/EKG's, [facility] records)? Report findings @ -No old charts were reviewed Differential Diagnosis (chest pain, altered mental status, abdominal pain women, abdominal pain men, vaginal bleeding, weakness, fever, dyspnea, syncope, headache, dizziness, GI bleed, back pain, seizure, CVA, palpatations, mental health, musculoskeletal)? @ -Differential Headache:Migraine, tension, cluster, carbon monoxide, central venous thrombosis, pension karma temporal arteritis, acute closure glaucoma, intercranial hemorrhage, mastoiditis, sinusitis, head injury, this is not meant to be an all-inclusive list. EKG interpreted by me (3pts min.). @ -None done X-rays interpreted by me (1pt min.). @ -CXR interpreted by me negative for acute cardiopulmonary process. CT interpreted by me (1pt min.). @ -None done U/S interpreted by me (1pt. min.). @ -None done What testing was considered but not performed or refused? (CT, X-rays, U/S, labs)? Why? @ -CT brain recommended. Patient refused. What meds were considered but not given or refused? Why? @ -None Did you discuss the management of the patient with other professionals (professionals i.e. MARYAN Prater, K[employer] STEWARD, lab, RT, psych nurse, social worker psychiatric, employment interviewer, teacher, transit authority police officer, medical case worker)? Give summary @ -No Was smoking cessation discussed for >3mins.? @ -No Was critical care preformed (if so, how long)? @ -No Were there social determinants of health that impacted care today? How? (Homelessness, low income, unemployed, alcoholism, drug addiction, transportation, low edu. Level, literacy, decrease access to med. care, assisted, rehab)? @ -No Was there de-escalation of care discussed even if they declined (Discuss DNR or withdrawal of care, Hospice)? DNR status @ -No What co-morbidities impacted this encounter? (DM, HTN, Smoking, COPD, CAD, Cancer, CVA, ARF, Chemo, Hep., AIDS, mental health diagnosis, sleep apnea, morbid obesity)? @ -None Was patient admitted / discharged? Hospital course, mention meds given and route, prescriptions, significant lab abnormalities, going to OR and other pertinent info. @ -53-year-old female presented to ER for evaluation of cough and headache. Upon evaluation, patient resting company in exam and no signs of acute distress. No acute neurological findings on exam. Laboratory studies showed leukocytosis of 24.7 which is likely due to recent steroid use. CMP unremarkable. Viral swabs negative. Patient received symptomatic treatment in the ER with IV fluids, Reglan, Benadryl and Tylenol. Patient reporting continued headache for which patient received IV caffeine. Patient signed out to Evelia Rice PA-C pending disposition. (Sydnee Costa) Was pt. sent in by a medical professional or institution (MARYAN Prater, K[employer] STEWARD, urgent care, hospital, or [facility]...) When possible be specific @ -No Did you speak to anyone other than the patient for history (EMS, parent, family, police, friend...)? What history was obtained from this source @ -No Did you review nursing and triage notes (agree or disagree)? Why? @ -I reviewed and agree with nursing and triage notes Were old charts reviewed (outside hosp., previous admission, EMS record, old EKG, old radiological studies, urgent care reports/EKG's, [facility] records)? Report findings @ -No old charts were reviewed Differential Diagnosis (chest pain, altered mental status, abdominal pain women, abdominal pain men, vaginal bleeding, weakness, fever, dyspnea, syncope, headache, dizziness, GI bleed, back pain, seizure, CVA, palpatations, mental health, musculoskeletal)? @ -Differential Headache: Migraine, tension, cluster, carbon monoxide, central venous thrombosis, pension karma temporal arteritis, acute closure glaucoma, intercranial hemorrhage, mastoiditis, sinusitis, head injury, this is not meant to be an all-inclusive list. EKG interpreted by me (3pts min.). @ -None X-rays interpreted by me (1pt min.). @ -Chest x-ray negative for acute process CT interpreted by me (1pt min.). @ -None done U/S interpreted by me (1pt. min.). @ -None done What testing was considered but not performed or refused? (CT, X-rays, U/S, labs)? Why? @ -Recommended CT brain however patient refused What meds were considered but not given or refused? Why? @ -None Did you discuss the management of the patient with other professionals (professionals i.e. , PA, K[employer]EN STEWARD, lab, RT, psych nurse, social worker psychiatric, employment interviewer, teacher, transit authority police officer, medical case worker)? Give summary @ -No Was smoking cessation discussed for >3mins.? @ -No Was critical care preformed (if so, how long)? @ -No Were there social determinants of health that impacted care today? How? (Homelessness, low income, unemployed, alcoholism, drug addiction, transportation, low edu. Level, literacy, decrease access to med. care, assisted, rehab)? @ -No Was there de-escalation of care discussed even if they declined (Discuss DNR or withdrawal of care, Hospice)? DNR status @ -No What co-morbidities impacted this encounter? (DM, HTN, Smoking, COPD, CAD, Cancer, CVA, ARF, Chemo, Hep., AIDS, mental health diagnosis, sleep apnea, morbid obesity)? @ -None Was patient admitted / discharged? Hospital course, mention meds given and route, prescriptions, significant lab abnormalities, going to OR and other pertinent info. @ -Discharge. 53-year-old female presenting to the ED for cough and headache. Neuro examination unremarkable. Patient received symptomatic treatment including IV fluids, Reglan, Benadryl, Tylenol, and caffeine. Lab work remarkable for leukocytosis of 24.7 likely from steroid use. Lab work otherwise unremarkable. Patient is negative for COVID, influenza, and RSV. Recommended CT brain however patient refused. Upon reevaluation, patient reports significant improvement of symptoms and would like to be discharged. Appropriate return precautions and follow-up care discussed. This was discussed with ED attending Dr. Christine. Undiagnosed new problem with uncertain prognosis? @ -No Drug Therapy requiring intensive monitoring for toxicity (Heparin, Nitro, Insulin, Cardizem)? @ -No Were any procedures done? @ -No Diagnosis/symptom? @ -Headache Acute, or Chronic, or Acute on Chronic? @ -Acute Uncomplicated (without systemic symptoms) or Complicated (systemic symptoms)? @ -Uncomplicated Side effects of treatment? @ -No Exacerbation, Progression, or Severe Exacerbation? @ -No Poses a threat to life or bodily function? How? (Chest pain, [place], [place], pneumonia, PE, COPD, DKA, ARF, appy, cholecystitis, CVA, Diverticulitis, Homicidal, Suicidal, threat to staff... and all critical care pts) @ -Not at this time (Evelia Rice) - Lab Data Lab Results 05/28/24 05/28/24 05/28/24 Range/Units 13:53 13:53 13:53 WBC 24.7 H (3.8-10.6) k/uL RBC 4.68 (3.80-5.40) m/uL Hgb 14.0 (11.4-16.0) gm/dL Hct 41.9 (34.0-46.0) % MCV 89.5 (80.0-100.0) fL MCH 29.9 (25.0-35.0) pg MCHC 33.4 (31.0-37.0) g/dL RDW 13.4 (11.5-15.5) % Plt Count 535 H (150-450) k/uL MPV 7.3 Neutrophils % 83 % Lymphocytes % 9 % Monocytes % 6 % Eosinophils % 1 % Basophils % 0 % Neutrophils # 20.5 H (1.3-7.7) k/uL Lymphocytes # 2.2 (1.0-4.8) k/uL Monocytes # 1.4 H (0-1.0) k/uL Eosinophils # 0.2 (0-0.7) k/uL Basophils # 0.1 (0-0.2) k/uL Sodium 137 (137-145) mmol/L Potassium 4.2 (3.5-5.1) mmol/L Chloride 105 (98-107) mmol/L Carbon Dioxide 25 (22-30) mmol/L Anion Gap 7 mmol/L BUN 8 (7-17) mg/dL Creatinine 0.58 (0.52-1.04) mg/dL Est GFR (CKD-EPI)AfAm >90 (>60 ml/min/1.73 sqM) Est GFR (CKD-EPI)NonAf >90 (>60 ml/min/1.73 sqM) Glucose 109 H (74-99) mg/dL Calcium 10.0 (8.4-10.2) mg/dL Total Bilirubin 0.4 (0.2-1.3) mg/dL AST 21 (14-36) U/L ALT 20 (4-34) U/L Alkaline Phosphatase 131 H (38-126) U/L Total Protein 7.5 (6.3-8.2) g/dL Albumin 4.1 (3.5-5.0) g/dL Influenza Type A (PCR) Not Detected (Not Detectd) Influenza Type B (PCR) Not Detected (Not Detectd) RSV (PCR) Not Detected (Not Detectd) SARS-CoV-2 (PCR) Not Detected (Not Detectd) Disposition <Sydnee Csota - Last Filed: 05/28/24 16:29> Is patient prescribed a controlled substance at d/c from ED?: No Time of Disposition: 16:53 <Evelia Rice - Last Filed: 05/28/24 18:49> Clinical Impression: Headache Disposition: HOME SELF-CARE Condition: Stable Instructions (If sedation given, give patient instructions): Acute Headache (ED) Additional Instructions: Please return to the Emergency Department if symptoms worsen or any other concerns. Referrals: Jodi Mcmillan DO [Primary Care Provider] - 1-2 days
[2024-05-28] MEDS: SODIUM CHLORIDE 0.9% 1,000 ML IV STA (13:58)
[2024-05-28] MEDS: ACETAMINOPHEN TAB 325 MG TAB PO STA (13:58)
[2024-05-28 14:06] LABS: Basophils # (A) 0.1 k/uL (0-0.2); Basophils % (A) 0 %; Eosinophils # (A) 0.2 k/uL (0-0.7); Eosinophils % (A) 1 %; HCT 41.9 % (34.0-46.0); Lymphocytes # (A) 2.2 k/uL (1.0-4.8); Lymphocytes % (A) 9 %; MCH 29.9 pg (25.0-35.0); MCHC 33.4 g/dL (31.0-37.0); MCV 89.5 fL (80.0-100.0); Mean Platelet Volume 7.3; Monocytes # (A) 1.4 k/uL (0-1.0); Monocytes % (A) 6 %; Neutrophils # (A) 20.5 k/uL (1.3-7.7); Neutrophils % (A) 83 %; Platelet Count 535 k/uL (150-450); RBC 4.68 m/uL (3.80-5.40); RDW 13.4 % (11.5-15.5); WBC 24.7 k/uL (3.8-10.6)
[2024-05-28 14:15] LABS: ALT 20 U/L (4-34); AST 21 U/L (14-36); African American GFR (CKD) >90 (>60 ml/min/1.73 sqM); Albumin 4.1 g/dL (3.5-5.0); Alkaline Phosphatase 131 U/L (38-126); Anion Gap 7 mmol/L; Blood Urea Nitrogen 8 mg/dL (7-17); Carbon Dioxide 25 mmol/L (22-30); Chloride 105 mmol/L (98-107); Glucose 109 mg/dL (74-99); Non-African American GFR(CKD) >90 (>60 ml/min/1.73 sqM); Potassium 4.2 mmol/L (3.5-5.1); Sodium 137 mmol/L (137-145); Total Bilirubin 0.4 mg/dL (0.2-1.3); Total Protein 7.5 g/dL (6.3-8.2)
[2024-05-28] MEDS: diphenhydrAMINE 50 MG/ML 1 ML VIAL IVP STA (14:24)
[2024-05-28] MEDS: METOCLOPRAMIDE 5 MG/ML 2 ML VIAL IVP STA (14:24)
--- NOTE | 2024-05-28 14:39 | XR ---
EXAMINATION TYPE: XR chest 2V DATE OF EXAM: 05/28/2024 COMPARISON: NONE CLINICAL INDICATION: Female, 53 years old with history of cough; , TECHNIQUE: XR chest 2V views of the chest. FINDINGS: The Powers changes and borderline to mild cardiomegaly. Mild interstitial pattern and underlying emp hysematous changes. Surgical clips gallbladder fossa. Osseous structures demonstrate hypertrophic and degenerative changes of the spine. IMPRESSION: 1. Mild coarsened interstitium likely reflects a degree of chronic interstitial lung disease. Mild saul perimposed infectious interstitial pneumonitis in the differential diagnosis. Correlate clinically. [facility], , 05/28/2024 2:37 PM
[2024-05-28] MEDS: CAFFEINE-SODIUM BENZOATE 500 MG in SODIUM CHLORIDE 0.9% 1,000 ML IVPB ONE (15:33)
[2024-05-28 17:16] VITALS: BP 110/76; PULSE 81; TEMP 98.1
== END 2024-05-28 17:54 | disposition home or self-care (01) ==
LOC: EC 12:52
DX: R51.9 Headache, unspecified (principal); D72.829 Elevated white blood cell count, unspecified; F17.200 Nicotine dependence, unspecified, uncomplicated
CPT/HCPCS: 36415; 80053; 85025; 87636; 71046; 99284; 96365; 96366; 96375 ×2; 96361; J1200; J2765

== ENCOUNTER → 2024-07-23 | Day surgery (SDC) | payer MEDICAID ==
[2024-07-21 11:42] VITALS: BMI 32.2
[~2024-07-23] MED LIST changes: -LIDOCAINE 1% (10MG/ML) FOR IV START INTRADERMA PRN; +PROPOFOL 10 MG/ML 20 ML VIAL IV ONE
[2024-07-23] MEDS: IV FLUID CONTINUATION 1,000 ML IV ONE (10:23)
[2024-07-23 10:32] VITALS: RESP 16; TEMP 98.7
[2024-07-23] MEDS: LACTATED RINGERS 1,000 ML IV SCH (10:39)
--- NOTE | 2024-07-23 12:20 | P.PCN ---
Date of Procedure: 07/23/24 Procedure(s) Performed: BRIEF HISTORY: Patient is a 53-year-old pleasant white female scheduled for an elective colonoscopy as a part of screening for prior history of colon polyps. She was noted to have a large colon polyp in the ascending colon in May 2023 for which she underwent right colon resection in October 2023. She is scheduled for screening colonoscopy today. Father was diagnosed with colon cancer at age 60. PROCEDURE PERFORMED: Colonoscopy. PREOPERATIVE DIAGNOSIS: Screening for history of colon polyps and family history of colon cancer.. IV sedation per Anesthesia. PROCEDURE: After informed consent was obtained, the patient, was brought into the endoscopy unit. IV sedation was administered by Anesthesia under continuous monitoring. Digital rectal examination was normal. Initially the Olympus CF-160 flexible video colonoscope was then inserted in the rectum, gradually advanced into sigmoid colon further advancement was not possible. The scope was removed and a pediatric colonoscopy centimeters into the rectum and gently advanced into the the right colon with ileocolic anastomosis was visualized and appeared normal. Transverse colon, descending colon, sigmoid colon, and rectum appeared normal. Retroflexion was performed in the rectum and no lesions were seen. The p atient tolerated the procedure well. IMPRESSION: Normal-appearing colon from rectum to right colon with normal- appearing ileocolic anastomosis. RECOMMENDATIONS: Findings of this examination were discussed with the patient as well as her family. She was advised to have repeat colonoscopy in 3 years because of the prior history of large colon polyps and family history of colon cancer.
[2024-07-23 12:37] VITALS: BP 126/76; PULSE 68
== END ==
LOC: ORWHC2ENDO 09:29
PROVIDERS: ATTEND Internal Medicine Gastroenterology
DX: Z12.11 Encounter for screening for malignant neoplasm of colon (principal); Z86.0100 Personal history of colon polyps, unspecified
CPT/HCPCS: 45378; J2704

== ENCOUNTER → 2024-09-02 | Outpatient (CLI) | payer MEDICAID ==
[2024-09-02 18:42] LABS: HCT 44.7 % (37.2-46.3); HGB 14.2 g/dL (12.0-15.0); MCH 29.4 pg (27.0-32.0); MCHC 31.8 g/dL (32.0-37.0); MCV 92.5 FL (80.0-97.0); Mean Platelet Volume 10.7 FL (9.5-12.2); NRBC Per 100 WBC 0 X 10*3/uL (0.00-0.01); Platelet Count 415 X 10*3/uL (140-440); RBC 4.83 X 10*6/uL (4.10-5.20); RDW 13.3 % (11.5-14.5); WBC 11.01 X 10*3/uL (4.50-10.00)
[2024-09-02 19:25] LABS: ALT 11 U/L (8-44); AST 16 U/L (13-35); Albumin/Globulin Ratio 1.33 Ratio (1.60-3.17); Alkaline Phosphatase 111 U/L (41-126); Blood Urea Nitrogen 7.2 mg/dL (9.0-27.0); Calcium 9.7 mg/dL (8.7-10.3); Carbon Dioxide 25.3 mmol/L (21.6-31.8); Chloride 106 mmol/L (96-109); Chol/HDL Ratio 3.91 Ratio; Glucose 102 mg/dL (70-110); LDL Cholesterol,Calculated 120.3 mg/dL (0.0-131.0); Potassium 5.1 mmol/L (3.5-5.5); Sodium 140 mmol/L (135-145); Total Bilirubin 0.5 mg/dL (0.3-1.2)
== END | disposition home or self-care (01) ==
LOC: LABWHC1 12:26
PROVIDERS: ATTEND Family Medicine
DX: R10.84 Generalized abdominal pain (principal)
CPT/HCPCS: 36415; 80053; 80061; 83036; 84443; 85027

== ENCOUNTER 2024-09-03 15:15 | Emergency (ER) | payer MEDICAID ==
[2024-09-03 15:32] VITALS: TEMP 98.5
[2024-09-03] MEDS: SODIUM CHLORIDE 0.9% 1,000 ML IV ONE (16:26)
[2024-09-03] MEDS: PANTOPRAZOLE 40 MG/10 ML VIAL IVP STA (16:26)
[2024-09-03] MEDS: KETOROLAC 15 MG/ML 1 ML VIAL IVP STA (16:27)
[2024-09-03] MEDS: ONDANSETRON ODT 8 MG TAB.RAPDIS PO STA (16:28)
[2024-09-03 16:34] LABS: Basophils # (A) 0.1 k/uL (0-0.2); Basophils % (A) 1 %; Eosinophils # (A) 0.5 k/uL (0-0.7); Eosinophils % (A) 3 %; HCT 46.1 % (34.0-46.0); HGB 14.8 gm/dL (11.4-16.0); Lymphocytes # (A) 3.8 k/uL (1.0-4.8); Lymphocytes % (A) 27 %; MCH 29.3 pg (25.0-35.0); MCHC 32.2 g/dL (31.0-37.0); Mean Platelet Volume 8.4; Monocytes # (A) 0.8 k/uL (0-1.0); Monocytes % (A) 6 %; Neutrophils # (A) 8.7 k/uL (1.3-7.7); Neutrophils % (A) 61 %; Platelet Count 452 k/uL (150-450); RBC 5.07 m/uL (3.80-5.40); RDW 13.6 % (11.5-15.5); WBC 14.2 k/uL (3.8-10.6)
[2024-09-03 16:42] LABS: Appearance,Urine Clear (Clear); Bilirubin,Urine Negative (Negative); Blood,Urine Negative (Negative); Color,Urine Colorless; Glucose,Urine (UA) Negative (Negative); Ketones,Urine Negative (Negative); Leukocyte Esterase,Urine Negative (Negative); Nitrite,Urine Negative (Negative); PH, Urine 5.5 (5.0-8.0); Protein,Urine Negative (Negative); Specific Gravity,Urine 1.005 (1.001-1.035); Urobilinogen,Urine <2.0 mg/dL (<2.0)
[2024-09-03 16:45] LABS: INR 0.9 (<1.2); Partial Thromboplastin Time 23.6 sec (22.0-30.0); Prothrombin Time 9.8 sec (10.0-12.5)
[2024-09-03 16:59] LABS: ALT 13 U/L (4-34); AST 25 U/L (14-36); African American GFR (CKD) >90 (>60 ml/min/1.73 sqM); Albumin 4.4 g/dL (3.5-5.0); Alkaline Phosphatase 78 U/L (38-126); Amylase 50 U/L (30-110); Anion Gap 11 mmol/L; Blood Urea Nitrogen 7 mg/dL (7-17); Calcium 9.8 mg/dL (8.4-10.2); Carbon Dioxide 24 mmol/L (22-30); Chloride 102 mmol/L (98-107); Glucose 81 mg/dL (74-99); Lipase 83 U/L (23-300); Non-African American GFR(CKD) >90 (>60 ml/min/1.73 sqM); Sodium 137 mmol/L (137-145); Total Bilirubin 0.9 mg/dL (0.2-1.3); Total Protein 7.8 g/dL (6.3-8.2)
[2024-09-03 17:04] LABS: Influenza A Not Detected (Not Detectd); Influenza B Not Detected (Not Detectd); RSV Not Detected (Not Detectd)
[2024-09-03 17:06] LABS: Potassium 4.5 mmol/L (3.5-5.1)
[2024-09-03 17:47] VITALS: BP 159/82; PULSE 52; RESP 17
--- NOTE | 2024-09-03 18:03 | CT ---
EXAMINATION TYPE: CT abdomen pelvis w con DATE OF EXAM: 09/03/2024 5:45 PM COMPARISON: 05/02/2023 CLINICAL INDICATION: Female, 53 years old with history of abdominal pain, abdominal pain, discomfort TECHNIQUE: Axial images were obtained from above the diaphragm to the pubic rami in the axial plane a t 5 mm thick sections. Reconstructed images are reviewed on the computer in the coronal plane. CONTRAST: 100 mL of Isovue 300. Study performed without Oral Contrast DLP: 874.9 mGycm, Automated exposure control for dose reduction was used. FINDINGS: Limited CT sections are obtained the lung bases. The lung bases are clear. CT ABDOMEN: Liver: Normal Spleen: Normal Pancreas: Normal Adrenal glands: The adrenal glands are normal. Gallbladder: Surgically absent Kidneys: No masses are evident. No hydronephrosis is present. Small cortical renal cysts on the lat eral mid left kidney on delayed images. Aorta: Vascular calcification is within the aorta. Inferior vena cava: Normal. CT PELVIS: Loops of bowel within the abdomen and pelvis are normal. There are loops of bowel which are incom pletely distended or lack oral contrast limiting their evaluation. Appendix: There is prior bowel surgery at the proximal ascending colon which may be an anastomosis wi th partial prior colectomy. Correlate with history. The appendix is not identified. Urinary bladder: Normal. Genitourinary structures: There is a large cyst at the expected region of the uterus. Uterus appears to be absent. Findings may be a large ovarian cyst essentially within the posterior midline measuring 7.5 x 6.4 cm. This is new from comparison. Osseous structures: No suspicious lytic or sclerotic lesions. IMPRESSION: 1. Large 8 x 6 cm cyst in the posterior midline may be a remnant ovarian cyst, new from comparison. 2. There appears to be prior proximal ascending colon surgery. [facility], , 09/03/2024 6:01 PM
--- NOTE | 2024-09-03 18:22 | ED ---
General Adult HPI - General Chief complaint: Abdominal Pain Stated complaint: abd pain Time Seen by Provider: 09/03/24 15:55 Source: patient, RN notes reviewed, old records reviewed Mode of arrival: ambulatory - History of Present Illness Initial comments: Patient is a 53-year-old female presents emergency department for evaluation of abdominal pain. Patient was seen at her primary care office for her abdominal pain which has been worse over the last couple weeks. Patient has a history of chronic abdominal pain she does have a history of bowel resection. Does have chronic diarrhea but has been worse over the last few weeks. Mild nausea as well. No blood in her diarrhea or emesis. Denies any chest pain or shortness of breath. Denies any urinary complaints. Has a history of other abdominal surgeries like hysterectomy as well as a unilateral oophorectomy. Denies any vaginal discharge or bleeding. Had an ultrasound done outpatient and her PCP was concerned for possible bowel obstruction which is why she sent her here for CT imaging. Patient no longer has a gallbladder. She presents for further evaluation at this time. - Related Data Home Medications Medication Instructions Recorded Confirmed Acetaminophen Tab [Tylenol Tab] 650 mg PO Q6H PRN 09/21/17 07/23/24 Loratadine/Pseudoephedrine 1 each PO DAILY 09/23/18 07/23/24 [Loratadine-D 24Hr Tablet] Atorvastatin [Lipitor] 10 mg PO HS 05/22/23 07/23/24 Dicyclomine [Bentyl] 20 mg PO QID 07/21/24 07/23/24 Previous Rx's Medication Instructions Recorded Loperamide HCl [Loperamide] 2 mg PO QID PRN 5 Days #20 capsule 09/03/24 Allergies Allergy/AdvReac Type Severity Reaction Status Date / Time No Known Allergies Allergy Verified 09/03/24 15:32 Review of Systems ROS Statement: Those systems with pertinent positive or pertinent negative responses have been documented in the HPI. Review of Systems: CONST: Denies fever EYES: Denies blurry vision ENT: Denies nasal congestion C/V: Denies Chest pain RESP: Denies shortness of breath GI: Endorses acute on chronic abdominal pain : Denies dysuria SKIN: Denies rash. MSK: Denies joint pain. NEURO: Denies headache ROS Other: All systems not noted in ROS Statement are negative. Past Medical History Past Medical History: Neurologic Disorder Additional Past Medical History / Comment(s): HX MIGRAINES mass to bowels History of Any Multi-Drug Resistant Organisms: None Reported Past Surgical History: Bowel Resection, Breast Surgery, Cholecystectomy, Hysterectomy, Uterine Ablation Additional Past Surgical History / Comment(s): RT BREAST BX. COLONOSCOPY. D & C Past Anesthesia/Blood Transfusion Reactions: No Reported Reaction Additional Past Anesthesia/Blood Transfusion Reaction / Comment(s): no blood transfusion Past Psychological History: Depression Smoking Status: Current every day smoker Past Alcohol Use History: None Reported Past Drug Use History: Marijuana - Past Family History Mother Family Medical History: Cancer, COPD, Pulmonary Embolus Additional Family Medical History / Comment(s): emphysema, carotids done. valve replacement. 3 stents. blood clots. lung cancer Father Family Medical History: Cancer Additional Family Medical History / Comment(s): colon General Exam - General Exam Comments Initial Comments: General: Appears in mild distress secondary to abdominal pain. HEAD: Normal with no signs of head trauma. EYES: PERRLA, EOMI, conjunctiva normal, no discharge. ENT: Hearing grossly intact, normal oropharynx. RESPIRATORY: Clear breath sounds bilaterally. No wheezes, rales, or rhonchi. C/V: Regular rate and rhythm. S1 and S2 auscultated, no edema, peripheral pulses 2+ and intact throughout ABD: Abdomen soft, nondistended. Tender to palpation periumbilically and in the bilateral upper quadrants. No guarding or rebound tenderness. No peritoneal signs. EXT: Normal range of motion, no obvious deformity SKIN: No rashes or lesions observed on exposed skin. NEURO: Alert and oriented x 4 Course Vital Signs 09/03/24 09/03/24 15:26 17:46 Temperature 98.5 F Pulse Rate 70 52 L Respiratory 18 17 Rate Blood Pressure 138/81 159/82 O2 Sat by Pulse 98 100 Oximetry Medical Decision Making - Medical Decision Making Was pt. sent in by a medical professional or institution (, PA, [facility], urgent care, hospital, or [place] [facility] facility...) When possible be specific @ -No Did you speak to anyone other than the patient for history (EMS, parent, family, police, friend...)? What history was obtained from this source @ -No Did you review nursing and triage notes (agree or disagree)? Why? @ -I reviewed and agree with nursing and triage notes Were old charts reviewed (outside hosp., previous admission, EMS record, old EKG, old radiological studies, urgent care reports/EKG's, [place] [facility] facility records)? Report findings @ -Reviewed laboratory studies outpatient obtained yesterday. No obvious acute findings other than mild leukocytosis. Differential Diagnosis (chest pain, altered mental status, abdominal pain women, abdominal pain men, vaginal bleeding, weakness, fever, dyspnea, syncope, headache, dizziness, GI bleed, back pain, seizure, CVA, palpatations, mental health, musculoskeletal)? @ -Differential Abdominal Pain Women: Appendicitis, Cholecystitis, diverticulosis, ischemic bowel, pancreatitis, hepatitis, UTI, gastroenteritis, AAA, incarcerated hernia, bowel obstruction, constipation, inflammatory bowel, hepatitis, peptic ulcer disease, splenic infarction, perforated viscus, vulvitis, ovarian torsion, PID, kidney stone, placenta abruption, this is not meant to be an all-inclusive list EKG interpreted by me (3pts min.). @ -As above X-rays interpreted by me (1pt min.). @ -None done CT interpreted by me (1pt min.). @ -CT abdomen pelvis revealed no obvious acute intra-abdominal process to explain the patient's current symptoms. Patient does have an incidental finding of a cystic structure in the area of where her uterus used to be, likely a remanent ovarian cyst. This would not explain the patient's diarrhea and upper abdominal discomfort. Incidental finding. U/S interpreted by me (1pt. min.). @ -None done What testing was considered but not performed or refused? (CT, X-rays, U/S, labs)? Why? @ -None What meds were considered but not given or refused? Why? @ -None Did you discuss the management of the patient with other professionals (professionals i.e. , PA, [facility], lab, RT, psych nurse, director social welfare, business analyst sales operations, t eacher, general service officer, case advocate)? Give summary @ -No Was smoking cessation discussed for >3mins.? @ -No Was critical care preformed (if so, how long)? @ -No Were there social determinants of health that impacted care today? How? (Homelessness, low income, unemployed, alcoholism, drug addiction, transportation, low edu. Level, literacy, decrease access to med. care, usp, rehab)? @ -No Was there de-escalation of care discussed even if they declined (Discuss DNR or withdrawal of care, Hospice)? DNR status @ -No What co-morbidities impacted this encounter? (DM, HTN, Smoking, COPD, CAD, Cancer, CVA, ARF, Chemo, Hep., AIDS, mental health diagnosis, sleep apnea, morbid obesity)? @ -Chronic diarrhea, bowel resection Was patient admitted / discharged? Hospital course, mention meds given and route, prescriptions, significant lab abnormalities, going to OR and other pertinent info. @ -Based on patient's presentation and physical exam, presents emergency department complaining of acute on chronic abdominal pain with worsening diarrhea. States is more frequent than normal. Saw her PCP who did an ultrasound and recommended she come in for CT imaging further workup. Will repeat abdominal labs. Patient will be symptomatically treat with IV fluids, analgesia medications, Zofran and Protonix. She was in agreement this plan. Vitals are within acceptable limits. EKG shows no signs of acute ischemia. Laboratory studies are remarkable for leukocytosis of 14.2 which is likely reactive and secondary to some mild dehydration from the persistent diarrhea. The remainder the labs unremarkable. CT imaging does not reveal any obvious acute process to explain patient's current symptoms but does have a prominent ovarian cyst present which would not explain her symptoms. I discussed results with the patient. She expressed understanding of the relatively unremarkable workup at this time. She will be discharged home with instructions to follow-up with her PCP as well as team assistant Dr. Nunn or her surgeon Dr. Mike. She was in agreement this plan. I will provide the patient with a prescription for loperamide. I instructed the patient to follow up with their PCP in the next 1-3 days.. I explained that the patient should return to the emergency department if they experience any worsening symptoms. Strict return precautions were discussed with the patient. The patient expressed understanding of these instructions. I answered all questions that the patient had. The patient was discharged home in good condition with their prescriptions and follow up information. Undiagnosed new problem with uncertain prognosis? @ -No Drug Therapy requiring intensive monitoring for toxicity (Heparin, Nitro, Insulin, Cardizem)? @ -No Were any procedures done? @ -No Diagnosis/symptom? @ -Abdominal pain of unknown etiology, diarrhea, remnant ovarian cyst Acute, or Chronic, or Acute on Chronic? @ -Acute on chronic Uncomplicated (without systemic symptoms) or Complicated (systemic symptoms)? @ -Uncomplicated Side effects of treatment? @ -No Exacerbation, Progression, or Severe Exacerbation? @ -No Poses a threat to life or bodily function? How? (Chest pain, [place], [place], pneumonia, PE, COPD, DKA, ARF, appy, cholecystitis, CVA, Diverticulitis, Homicidal, Suicidal, threat to staff... and all critical care pts) @ -Unlikely at this time - Lab Data Result diagrams: 09/03/24 16:24 09/03/24 16:24 Lab Results 09/03/24 09/03/24 09/03/24 Range/Units 16:24 16:24 16:24 WBC 14.2 H (3.8-10.6) k/uL RBC 5.07 (3.80-5.40) m/uL Hgb 14.8 (11.4-16.0) gm/dL Hct 46.1 H (34.0-46.0) % MCV 91.0 (80.0-100.0) fL MCH 29.3 (25.0-35.0) pg MCHC 32.2 (31.0-37.0) g/dL RDW 13.6 (11.5-15.5) % Plt Count 452 H (150-450) k/uL MPV 8.4 Neutrophils % 61 % Lymphocytes % 27 % Monocytes % 6 % Eosinophils % 3 % Basophils % 1 % Neutrophils # 8.7 H (1.3-7.7) k/uL Lymphocytes # 3.8 (1.0-4.8) k/uL Monocytes # 0.8 (0-1.0) k/uL Eosinophils # 0.5 (0-0.7) k/uL Basophils # 0.1 (0-0.2) k/uL PT 9.8 L (10.0-12.5) sec INR 0.9 (<1.2) APTT 23.6 (22.0-30.0) sec Sodium 137 (137-145) mmol/L Potassium 4.5 (3.5-5.1) mmol/L Chloride 102 (98-107) mmol/L Carbon Dioxide 24 (22-30) mmol/L Anion Gap 11 mmol/L BUN 7 (7-17) mg/dL Creatinine 0.60 (0.52-1.04) mg/dL Est GFR (CKD-EPI)AfAm >90 (>60 ml/min/1.73 sqM) Est GFR (CKD-EPI)NonAf >90 (>60 ml/min/1.73 sqM) Glucose 81 (74-99) mg/dL Plasma Lactic Acid Alex (0.7-2.0) mmol/L Calcium 9.8 (8.4-10.2) mg/dL Total Bilirubin 0.9 (0.2-1.3) mg/dL AST 25 (14-36) U/L ALT 13 (4-34) U/L Alkaline Phosphatase 78 (38-126) U/L Total Protein 7.8 (6.3-8.2) g/dL Albumin 4.4 (3.5-5.0) g/dL Amylase 50 (30-110) U/L Lipase 83 (23-300) U/L Urine Color Urine Appearance (Clear) Urine pH (5.0-8.0) Ur Specific [place] (1.001-1.035) Urine Protein (Negative) Urine Glucose (UA) (Negative) Urine Ketones (Negative) Urine Blood (Negative) Urine Nitrite (Negative) Urine Bilirubin (Negative) Urine Urobilinogen (<2.0) mg/dL Ur Leukocyte Esterase (Negative) Influenza Type A (PCR) (Not Detectd) Influenza Type B (PCR) (Not Detectd) RSV (PCR) (Not Detectd) SARS-CoV-2 (PCR) (Not Detectd) 09/03/24 09/03/24 09/03/24 Range/Units 16:24 16:24 16:28 WBC (3.8-10.6) k/uL RBC (3.80-5.40) m/uL Hgb (11.4-16.0) gm/dL Hct (34.0-46.0) % MCV (80.0-100.0) fL MCH (25.0-35.0) pg MCHC (31.0-37.0) g/dL RDW (11.5-15.5) % Plt Count (150-450) k/uL MPV Neutrophils % % Lymphocytes % % Monocytes % % Eosinophils % % Basophils % % Neutrophils # (1.3-7.7) k/uL Lymphocytes # (1.0-4.8) k/uL Monocytes # (0-1.0) k/uL Eosinophils # (0-0.7) k/uL Basophils # (0-0.2) k/uL PT (10.0-12.5) sec INR (<1.2) APTT (22.0-30.0) sec Sodium (137-145) mmol/L Potassium (3.5-5.1) mmol/L Chloride (98-107) mmol/L Carbon Dioxide (22-30) mmol/L Anion Gap mmol/L BUN (7-17) mg/dL Creatinine (0.52-1.04) mg/dL Est GFR (CKD-EPI)AfAm (>60 ml/min/1.73 sqM) Est GFR (CKD-EPI)NonAf (>60 ml/min/1.73 sqM) Glucose (74-99) mg/dL Plasma Lactic Acid Alex 2.0 (0.7-2.0) mmol/L Calcium (8.4-10.2) mg/dL Total Bilirubin (0.2-1.3) mg/dL AST (14-36) U/L ALT (4-34) U/L Alkaline Phosphatase (38-126) U/L Total Protein (6.3-8.2) g/dL Albumin (3.5-5.0) g/dL Amylase (30-110) U/L Lipase (23-300) U/L Urine Color Colorless Urine Appearance Clear (Clear) Urine pH 5.5 (5.0-8.0) Ur Specific [place] 1.005 (1.001-1.035) Urine Protein Negative (Negative) Urine Glucose (UA) Negative (Negative) Urine Ketones Negative (Negative) Urine Blood Negative (Negative) Urine Nitrite Negative (Negative) Urine Bilirubin Negative (Negative) Urine Urobilinogen <2.0 (<2.0) mg/dL Ur Leukocyte Esterase Negative (Negative) Influenza Type A (PCR) Not Detected (Not Detectd) Influenza Type B (PCR) Not Detected (Not Detectd) RSV (PCR) Not Detected (Not Detectd) SARS-CoV-2 (PCR) Not Detected (Not Detectd) - EKG Data -: EKG Interpreted by Me EKG Comments: 12-lead Electrocardiogram Interpretation Note EKG was reviewed and interpreted by myself. 12-lead ECG performed at 1619 is interpreted by me as revealing normal sinus rhythm at a rate of 55 beats per minute. [place] is normal. ID interval is 141 ms, QRS duration is 103 ms, QTc is 433 ms.. There were no ST or T wave abnormalities to suggest myocardial ischemia or injury. R wave progression across the precordium was satisfactory. By my interpretation this EKG is non-diagnostic for acute ischemia. Disposition Clinical Impression: Abdominal pain of unknown etiology, Diarrhea, Ovarian cyst Disposition: HOME SELF-CARE Condition: Good Instructions (If sedation given, give patient instructions): Abdominal Pain (ED) Prescriptions: Loperamide HCl [Loperamide] 2 mg PO QID PRN 5 Days #20 capsule PRN Reason: Diarrhea Is patient prescribed a controlled substance at d/c from ED?: No Referrals: Melo Templeton MD [Primary Care Provider] - 1-2 days Time of Disposition: 19:35
== END 2024-09-03 20:15 | disposition home or self-care (01) ==
LOC: EC 15:15
DX: N83.209 Unspecified ovarian cyst, unspecified side (principal); R19.7 Diarrhea, unspecified; F17.200 Nicotine dependence, unspecified, uncomplicated
CPT/HCPCS: 36415; 93005; 80053; 82150; 83605; 83690; 85025; 85610; 85730; 81003; 87636; 74177; 99284; 96374; 96375; 96361; J1885; Q9967; J2470

== ENCOUNTER → 2024-12-28 | Outpatient (CLI) | payer MEDICAID | END | disposition home or self-care (01) | LOC: LABWHC1 15:39 | PROVIDERS: ATTEND Physician Assistant | DX: N83.8 Other noninflammatory disorders of ovary, fallopian tube and broad ligament (principal) | CPT/HCPCS: 36415 ==